=== PATIENT | female | born 1955 | race Caucasian/White ===

== ENCOUNTER 2017-06-19 02:06 | Observation (INO) | payer OTHER ==
[~2017-06-19] VITALS: Ht 170.2 cm; Wt 86.0 kg
[2017-06-19] VITALS (16 sets, daily range): BP systolic 147–210; BP diastolic 69–97; PULSE 53–67; RESP 18–20; TEMP 96.7–97.4; O2SAT 96–100
[~2017-06-19 02:06] MED LIST: AMLO10TA2 PO; ASPI325T PO; ATOR40TA16 PO; CARV12.52 PO; DICY10CA12 PO; GLIP-158 PO; HYDR10TA23 PO; LOSA100T PO; METF1000 PO; NITR1SUB3 SL; PRIL20CA9 PO; TEGR200T PO; ZANT150T2 PO
[2017-06-19] MEDS ORDERED: ASPIRIN 81 MG CHEW TAB PO ONE (02:15)
[2017-06-19] MEDS ORDERED: SODIUM CHLORIDE 0.9% FLUSH 10 ML FLUSH IVF PRN (02:15)
[2017-06-19] MEDS ORDERED: SODIUM CHLOR 0.9% 1000 ML INJ 1,000 ML IV SCH (02:15)
--- NOTE | 2017-06-19 02:15 | PD ---
HPI Chief Complaint: chest pain Time Seen by Provider: 02:15 Travel History International Travel<30 days: No Contact w/Intl Traveler<30days: No Traveled to known affect area: No History of Present Illness HPI 61 year-old female with history of CAD previous cardiac catheterization and CABG 2010 presents with retrosternal chest pain radiating into her jaw typical of her angina onset just prior to arrival to the emergency department. No nausea no vomiting no sweats and no shortness of breath at this time but has been having intermittent shortness of breath reportedly. Patient does not take any aspirin or nitroglycerin prior to arrival to the emergency department. Pain is rated as 3/10 in intensity; initially it was a 9/10. Patient is unable to identify exacerbating or alleviating factors. Patient had left-sided upper back pain resolved spontaneously. Patient reports recent surgery to the right lower extremity without or lower extremity pain or swelling. Patient recently started on Plavix therapy. PFSH Past Medical History Narrative Medical CAD CABG hypertension dyslipidemia CVA seizure disorder diabetes PVD thyroid dysfunction left carotid endarterectomy; family history CAD father age 50; no tobacco use; nursing notes reviewed Arthritis: No Asthma: No Autoimmune Disease: No Anxiety: Yes Depression: Yes Heart Rhythm Problems: Yes Cancer: No Cardiac Catheterization: Yes Cardiovascular Problems: Yes High Cholesterol: Yes Chemotherapy: No Chest Pain: Yes Congestive Heart Failure: No COPD: No Cerebrovascular Accident: Yes (2007) Coronary Artery Disease: Yes (LT ENDARTERECTOMY) Diabetes: Yes Diminished Hearing: No Endocrine: Yes Gastrointestinal Disorders: Yes GERD: No Genitourinary: No Headaches: Yes Hepatitis: No Hiatal Hernia: No Hypertension: Yes Immune Disorder: No Implanted Vascular Access Dvce: Yes (stent) Kidney Stones: No Musculoskeletal: Yes Neurologic: Yes Psychiatric: Yes (PANIC ATTACK) Reproductive: No Respiratory: No Immunizations Current: Yes Migraines: No Myocardial Infarction: Yes (X 1) Pneumonia: Yes ( A CHILD) Radiation Therapy: No Renal Failure: No Seizures: Yes Sickle Cell Disease: No Sleep Apnea: No Thyroid Disease: Yes (HX GOITER) Ulcer: Yes PNEUMOCCOCAL Vaccine (Year): 2009 Menopausal: Yes : 0 Para: 0 Past Surgical History Abdominal Surgery: No AICD: No Appendectomy: No Arteriovenous Shunt: No Body Medical Devices: a stent left carotid Cardiac Surgery: Yes (CABG, Left carotarectomy) Cholecystectomy: No Coronary Artery Bypass Graft: Yes (07/29 quad bypass) Ear Surgery: No Endocrine Surgery: No Eye Surgery: No Genitourinary Surgery: No Gynecologic Surgery: No Insulin Pump: No Joint Replacement: No Neurologic Surgery: Yes (BACK SURGERY 1990 DISC) Oral Surgery: Yes (TOOTH EXTRACTION) Pacemaker: No Thoracic Surgery: No Tonsillectomy: Yes ( CHILD) Other Surgery: Yes (TRIGGER FINGER, CARPEL TUNNEL, LEFT CAROTID ARTERY STENT) Social History Alcohol Use: No Tobacco Use: No Substance Use: No (marijuana) Allergies-Medications (Allergen,Severity, Reaction): Coded Allergies: escitalopram (Unverified Allergy, Severe, Rash, 06/19/17) iodine (Unverified Allergy, Severe, SEIZURES, 06/19/17) levofloxacin (Unverified Allergy, Severe, HIVES, 06/19/17) phenobarbital (Unverified Allergy, Severe, HIVES, 06/19/17) phenytoin (Unverified Allergy, Severe, HIVES, 06/19/17) potassium iodide (Unverified Allergy, Severe, SEIZURES, 06/19/17) povidone-iodine (Unverified Allergy, Severe, SEIZURES, 06/19/17) sodium iodide (Unverified Allergy, Severe, SEIZURES, 06/19/17) sodium iodide (Unverified Allergy, Severe, SEIZURES, 06/19/17) acetaminophen (Unverified Allergy, Intermediate, Cramping, 06/19/17) hydrocodone (Unverified Allergy, Intermediate, Cramping, 06/19/17) venlafaxine (Unverified Allergy, Mild, RASH, 06/19/17) Reported Meds & Prescriptions Reported Meds & Active Scripts Active Zantac (Ranitidine HCl) 150 Mg Tab 150 Mg PO BID Reported Plavix (Clopidogrel Bisulfate) 75 Mg Tab 75 Mg PO DAILY Hydralazine (Hydralazine HCl) 100 Mg Tab 100 Mg PO Q6HR Take with meals Omeprazole 20 Mg Tab 20 Mg PO DAILY Nitroglycerin SL (Nitroglycerin) 0.4 Mg Subl 0.4 Mg SL DIRECTED PRN ONE TABLET UNDER THE TONGUE NEEDED FOR CHEST PAIN, MAY REPEAT EVERY FIVE MINUTES FOR A TOTAL OF 3 DOSES OR CALL 911 IF NO RELIEF Metformin (Metformin HCl) 1,000 Mg Tab 1,000 Mg PO BIDPC With meals Losartan (Losartan Potassium) 100 Mg Tab 100 Mg PO DAILY Dicyclomine (Dicyclomine HCl) 10 Mg Cap 10 Mg PO QID Carvedilol 12.5 Mg Tab 12.5 Mg PO BID Tegretol (Carbamazepine) 200 Mg Tab 200 Mg PO DAILY@1600 Tegretol (Carbamazepine) 200 Mg Tab 400 Mg PO DAILY@0600 Atorvastatin (Atorvastatin Calcium) 40 Mg Tab 40 Mg PO HS Aspirin 325 Mg Tab 325 Mg PO DAILY Glipizide XL (Glipizide) 2.5 Mg Taryn 2.5 Mg PO DAILY Take with breakfast or first main meal of the day Amlodipine (Amlodipine Besylate) 10 Mg Tab 10 Mg PO DAILY Review of Systems Except as stated in HPI: all other systems reviewed are Neg General / Constitutional: No: Fever, Chills HENT: No: Congestion Cardiovascular: Positive: Chest Pain or Discomfort, Dyspnea on exertion ( intermittently), No: Claudication Respiratory: Positive: Other (No PND), No: Shortness of Breath, Orthopnea Gastrointestinal: Positive: Nausea Genitourinary: No: Dysuria Neurologic: No: Weakness, Dizziness, Syncope Psychiatric: No: Anxiety Endocrine: No: Heat Intolerance Hematologic/Lymphatic: No: Easy Bruising Physical Exam Narrative GENERAL: Well-developed well-nourished female in no acute distress no respiratory distress SKIN: Warm and dry. HEAD: Normocephalic. EYES: No scleral icterus. No injection or drainage. NECK: Supple, trachea midline. No JVD or lymphadenopathy. CARDIOVASCULAR: Regular rate and rhythm without murmurs, gallops, or rubs. RESPIRATORY: Breath sounds equal bilaterally. No accessory muscle use. GASTROINTESTINAL: Abdomen soft, non-tender, nondistended. MUSCULOSKELETAL: No cyanosis, or edema. Radial dorsalis pedis pulses 2+ to palpation BACK: Nontender without obvious deformity. No CVA tenderness. Data Data Last Documented VS Vital Signs Date Time Temp Pulse Resp B/P (MAP) Pulse Ox O2 Delivery O2 Flow Rate FiO2 06/19/17 04:02 53 20 171/77 (108) 100 06/19/17 03:32 2.00 06/19/17 02:28 97.2 06/19/17 02:27 Nasal Cannula Orders Orders Electrocardiogram (06/19/17 02:09) Basic Metabolic Panel (Bmp) (06/19/17 02:09) Ckmb (Isoenzyme) Profile (06/19/17 02:09) Complete Blood Count With Diff (06/19/17 02:09) Magnesium (Mg) (06/19/17 02:09) Prothrombin Time / Inr (Pt) (06/19/17 02:09) Act Partial Throm Time (Ptt) (06/19/17 02:09) Troponin I (06/19/17 02:09) Chest, Single Ap (06/19/17 02:09) Ecg Monitoring (06/19/17 02:09) Bilateral Bp Monitoring (06/19/17 02:09) Iv Access Insert/Monitor (06/19/17 02:09) Oximetry (06/19/17 02:09) Oxygen Administration (06/19/17 02:09) Aspirin Chew (Aspirin Chew) (06/19/17 02:15) Sodium Chloride 0.9% Flush (Ns Flush) (06/19/17 02:15) Nitroglycerin Sl (Nitrostat Sl) (06/19/17 02:15) Sodium Chlor 0.9% 1000 Ml Inj (Ns 1000 M (06/19/17 02:15) Nitroglycerin 2% Oint (Nitroglycerin 2% (06/19/17 03:15) D-Dimer (06/19/17 03:11) Labs Laboratory Tests Test 06/19/17 02:20 White Blood Count 7.2 TH/MM3 Red Blood Count 3.53 MIL/MM3 Hemoglobin 8.8 GM/DL Hematocrit 27.2 % Mean Corpuscular Volume 77.1 FL Mean Corpuscular Hemoglobin 25.0 PG Mean Corpuscular Hemoglobin Concent 32.5 % Red Cell Distribution Width 14.7 % Platelet Count 417 TH/MM3 Mean Platelet Volume 8.0 FL Neutrophils (%) (Auto) 60.0 % Lymphocytes (%) (Auto) 27.1 % Monocytes (%) (Auto) 8.9 % Eosinophils (%) (Auto) 2.7 % Basophils (%) (Auto) 1.3 % Neutrophils # (Auto) 4.4 TH/MM3 Lymphocytes # (Auto) 1.9 TH/MM3 Monocytes # (Auto) 0.6 TH/MM3 Eosinophils # (Auto) 0.2 TH/MM3 Basophils # (Auto) 0.1 TH/MM3 CBC Comment DIFF FINAL Differential Comment Prothrombin Time 10.7 SEC Prothromb Time International Ratio 1.0 RATIO Activated Partial Thromboplast Time 25.4 SEC D-Dimer Quantitative (PE/DVT) 0.45 MG/L FEU Blood Urea Nitrogen 19 MG/DL Creatinine 0.74 MG/DL Random Glucose 142 MG/DL Calcium Level 8.4 MG/DL Magnesium Level 1.7 MG/DL Sodium Level 135 MEQ/L Potassium Level 4.1 MEQ/L Chloride Level 100 MEQ/L Carbon Dioxide Level 24.4 MEQ/L Anion Gap 11 MEQ/L Estimat Glomerular Filtration Rate 80 ML/MIN Total Creatine Kinase 71 U/L Troponin I LESS THAN 0.02 NG/ML MDM Medical Decision Making Medical Screen Exam Complete: Yes Emergency Medical Condition: Yes Medical Record Reviewed: Yes Interpretation(s) EKG normal sinus rhythm with first-degree AV block rate [address] elevation patient does have ST segment flattening and mild depression anterolaterally V1 through V6 cxr no vascular congestion or lobar infiltrate Troponin I less than 0.02 not elevated; CK: 71, not elevated coags: wnl; d-dimer: 0.45, not elevated Last Impressions Chest X-Ray 06/19/17 0209 Signed Impressions: Service Date/Time: Monday, June 19, 2017 02:52 - CONCLUSION: Scattered streaky bilateral parenchymal opacities. Altaf Hawley MD Differential Diagnosis Chest pain, ACS, myocardial infarction, PE, aortic dissection Narrative Course Patient placed on cardiac sonographer EKG performed which shows sinus rhythm first degree AV block and mild ST segment flattening/depression anterolaterally [address] elevation IV access obtained specimens collected and sent resulting patient administered aspirin therapy and sublingual nitroglycerin Chest pain free after SL NTG x 1; blood pressure remains elevated Nitropaste applied to chest wall 3:19 AM patient @ 4:05 AM CP 0/10; BP: 166/60 Physician Communication Physician Communication discussed with patient's burial needs salesperson Dr Lynch-- DIRECTOR OF CORPORATE STRATEGY; call placed to [facility] service for [facility] DIRECTOR OF CORPORATE STRATEGY Diagnosis Primary Impression: Chest pain Additional Impressions: Anemia Qualified Codes: D64.9 - Anemia, unspecified Hypertension Qualified Codes: I10 - Essential (primary) hypertension Admitting Information Admitting Physician Requests: Observation Siri Lema MD Jun 19, 2017 02:15
[2017-06-19] MEDS: NITROGLYCERIN 0.4 MG SL 25 TABS/BTL SL SCH ×3 (02:18→02:25)
[2017-06-19 02:43] LABS: CHLORIDE 100 MEQ/L (98-107); SODIUM (NA) 135 MEQ/L (136-145)
[2017-06-19 02:45] LABS: CALCIUM 8.4 MG/DL (8.5-10.1)
[2017-06-19 02:46] LABS: BICARBONATE 24.4 MEQ/L (21.0-32.0); BLOOD UREA NITROGEN 19 MG/DL (7-18); GLUCOSE,RANDOM 142 MG/DL (74-106); MAGNESIUM 1.7 MG/DL (1.5-2.5)
[2017-06-19 02:48] LABS: AUTOMATED NEUTROPHIL # 4.4 TH/MM3 (1.8-7.7); BASOPHIL # 0.1 TH/MM3 (0-0.2); BASOPHIL % 1.3 % (0.0-2.0); EOSINOPHIL # 0.2 TH/MM3 (0-0.4); EOSINOPHIL % 2.7 % (0.0-4.0); HEMATOCRIT 27.2 % (35.0-46.0); HEMOGLOBIN 8.8 GM/DL (11.6-15.3); LYMPH % 27.1 % (9.0-44.0); LYMPHOCYTE # 1.9 TH/MM3 (1.0-4.8); MEAN CELL VOLUME 77.1 FL (80.0-100.0); MEAN CORPUSCULAR HGB CONC 32.5 % (32.0-36.0); MONO % 8.9 % (0.0-8.0); MONOCYTE # 0.6 TH/MM3 (0-0.9); PLATELET COUNT 417 TH/MM3 (150-450); PROTHROMBIN TIME - PATIENT 10.7 SEC (9.8-11.6); RED BLOOD COUNT 3.53 MIL/MM3 (4.00-5.30); RED CELL DISTRIBUTION WIDTH 14.7 % (11.6-17.2); WHITE BLOOD COUNT 7.2 TH/MM3 (4.0-11.0)
[2017-06-19 02:49] LABS: CREATININE 0.74 MG/DL (0.50-1.00); GLOMERULAR FILTRATION RATE 80 ML/MIN (>89)
[2017-06-19 02:54] LABS: TROPONIN I LESS THAN 0.02 NG/ML (0.02-0.05)
[2017-06-19] MEDS ORDERED: OMEP20TA PO (02:56)
[2017-06-19] MEDS ORDERED: DICY10 PO (02:56)
[2017-06-19] MEDS ORDERED: PLAV75TA29 PO (02:56)
[2017-06-19] MEDS ORDERED: HYDR-3801 PO (02:56)
[2017-06-19] MEDS ORDERED: NITROGLYCERIN 2% OINT 1 GM PACKET TOPICAL ONE (03:15)
--- NOTE | 2017-06-19 03:25 | RADRPT ---
EXAM DATE/TIME: 06/19/2017 02:52 [place] COMPARISON: CHEST SINGLE AP, November 13, 2015, 14:46. MYOCARDIAL PERF PHARM SPECT, GATED W/EF, December 28, 2014, 14:18 . INDICATIONS : Shortness of breath. MEDICAL HISTORY : Myocardial infarction. Hypertension. Coronary artery disease. Gastric ulcers. SURGICAL HISTORY : CABG. ENCOUNTER: Initial ACUITY: 1 day PAIN SCORE: 0/10 LOCATION: Bilateral chest FINDINGS: Minimal streaky parenchymal opacity present in the lungs bilaterally. No consolidative airspace disea se or effusion. Cardiomediastinal contour is satisfactory. CONCLUSION: Scattered streaky bilateral parenchymal opacities. Altaf Hawley MD on June 19, 2017 at 3:22 Board Certified Radiologist. This report was verified electronically.
[2017-06-19] MEDS ORDERED: NITROGLYCERIN 0.4 MG SL 25 TABS/BTL SL PRN (05:00)
[2017-06-19] MEDS ORDERED: SODIUM CHLORIDE 0.9% FLUSH 10 ML FLUSH IV FLUSH PRN ×2 (05:00)
[2017-06-19] MEDS ORDERED: PILL SPLITTER OTHER PRN (05:30)
[2017-06-19] MEDS ORDERED: hydrALAZINE HCL 100 MG TAB PO SCH (06:00)
[2017-06-19] MEDS ORDERED: carBAMazepine 200 MG TAB PO SCH (06:00)
[2017-06-19] MEDS: NITROGLYCERIN 2% OINT 1 GM PACKET TOP SCH ×2 (06:00→11:19)
[2017-06-19 06:06] LABS: TROPONIN I LESS THAN 0.02 NG/ML (0.02-0.05)
[2017-06-19] MEDS: hydrALAZINE HCL 50 MG TAB PO SCH ×2 (06:32→11:19)
[2017-06-19] MEDS: glipiZIDE 5 MG TAB PO SCH ×2 (07:46→14:58)
[2017-06-19] MEDS: DICYCLOMINE HCL 10 MG CAP PO SCH ×2 (08:32→11:19)
[2017-06-19] MEDS: CARVEDILOL 12.5 MG TAB PO SCH ×3 (08:33→15:00)
[2017-06-19] MEDS ORDERED: PANTOPRAZOLE SOD 20 MG DELAYED RELEASE TAB PO SCH (09:00)
[2017-06-19] MEDS ORDERED: LOSARTAN 50 MG TAB PO SCH (09:00)
[2017-06-19] MEDS ORDERED: SODIUM CHLORIDE 0.9% FLUSH 10 ML FLUSH IV FLUSH SCH ×2 (09:00)
[2017-06-19] MEDS ORDERED: CLOPIDOGREL 75 MG TAB PO SCH (09:00)
[2017-06-19] MEDS ORDERED: ASPIRIN 325 MG TAB PO SCH ×2 (09:00)
[2017-06-19] MEDS ORDERED: DEXTROSE 50% IN WATER 50 ML VIAL(D50) IV PUSH PRN (09:15)
[2017-06-19] MEDS ORDERED: GLUCAGON 1 MG/ML VIAL OTHER PRN (09:15)
[2017-06-19 09:16] LABS: TROPONIN I LESS THAN 0.02 NG/ML (0.02-0.05)
--- NOTE | 2017-06-19 09:28 | HHI.HP ---
[facility] Roseanna Perez MD Admission Diagnosis chest pain Diagnoses: (1) Chest pain Diagnosis: Principal Chief Complaint: Chest pain Travel History International Travel<30 Days: No Contact w/Intl Traveler <30 Da: No Traveled to Known Affected Are: No History of Present Illness Mrs. Molina is a 61-year-old female patient with a known medical history of CAD with previous CABG in 2010, hypercholesteremia and hypertension who presented to the ED with complaints of chest pain. Patient states that she has had intermittent chest pain for the past few months when this morning she awoke out of sleep around 0215 with complaints of midsternal chest pain, which radiated to the jaw and neck, lasted about 15 minutes with associated diaphoresis, shortness of breath an gas. States that the pain finally subsided around 20 minutes later after receiving Nitroglycerin in the ED. Does state that activity worsens the pain. Denies any associated nausea and vomiting. Denies any recent fever, chills, cough, abdominal pain, nausea, vomiting, diarrhea or dysuria. Patient does state she underwent unspecified bilateral lower extremity surgery by Dr. Valencia, with the right being on 05/12/17 and the left 05/23/17. Last saw Dr. Valencia yesterday who reportedly states patient is recovering well and improvement seen. Concrete Bucket Unloader is Dr. Lynch. Review of Systems Constitutional: DENIES: Fever, Chills Eyes: DENIES: Blurred vision Respiratory: COMPLAINS OF: Cough, Shortness of breath Cardiovascular: DENIES: Chest pain, Palpitations Gastrointestinal: DENIES: Abdominal pain, Constipation, Diarrhea, Nausea, Vomiting Psychiatric: COMPLAINS OF: Anxiety Except as stated in HPI: all other systems reviewed are Neg Past Family Social History Past Medical History CAD with history of CABG in 2010 Hypertension Hyperlipidemia History of CVA Seizure history Diabetes PVD Hypothyroidism Left carotid endarterectomy Depression History of tobacco use. Past Surgical History CABG 2010 Left cardiectomy Back surgery 1989 Tooth extraction Carpal tunnel Reported Medications Active Zantac (Ranitidine HCl) 150 Mg Tab 150 Mg PO BID Reported Plavix (Clopidogrel Bisulfate) 75 Mg Tab 75 Mg PO DAILY Hydralazine (Hydralazine HCl) 100 Mg Tab 100 Mg PO Q6HR Take with meals Omeprazole 20 Mg Tab 20 Mg PO DAILY Nitroglycerin SL (Nitroglycerin) 0.4 Mg Subl 0.4 Mg SL DIRECTED PRN ONE TABLET UNDER THE TONGUE NEEDED FOR CHEST PAIN, MAY REPEAT EVERY FIVE MINUTES FOR A TOTAL OF 3 DOSES OR CALL 911 IF NO RELIEF Metformin (Metformin HCl) 1,000 Mg Tab 1,000 Mg PO BIDPC With meals Losartan (Losartan Potassium) 100 Mg Tab 100 Mg PO DAILY Dicyclomine (Dicyclomine HCl) 10 Mg Cap 10 Mg PO QID Carvedilol 12.5 Mg Tab 12.5 Mg PO BID Tegretol (Carbamazepine) 200 Mg Tab 200 Mg PO DAILY@1600 Tegretol (Carbamazepine) 200 Mg Tab 400 Mg PO DAILY@0600 Atorvastatin (Atorvastatin Calcium) 40 Mg Tab 40 Mg PO HS Aspirin 325 Mg Tab 325 Mg PO DAILY Glipizide XL (Glipizide) 2.5 Mg Taryn 2.5 Mg PO DAILY Take with breakfast or first main meal of the day Amlodipine (Amlodipine Besylate) 10 Mg Tab 10 Mg PO DAILY Allergies: Coded Allergies: escitalopram (Unverified Allergy, Severe, Rash, 06/19/17) iodine (Unverified Allergy, Severe, SEIZURES, 06/19/17) levofloxacin (Unverified Allergy, Severe, HIVES, 06/19/17) phenobarbital (Unverified Allergy, Severe, HIVES, 06/19/17) phenytoin (Unverified Allergy, Severe, HIVES, 06/19/17) potassium iodide (Unverified Allergy, Severe, SEIZURES, 06/19/17) povidone-iodine (Unverified Allergy, Severe, SEIZURES, 06/19/17) sodium iodide (Unverified Allergy, Severe, SEIZURES, 06/19/17) sodium iodide (Unverified Allergy, Severe, SEIZURES, 06/19/17) acetaminophen (Unverified Allergy, Intermediate, Cramping, 06/19/17) hydrocodone (Unverified Allergy, Intermediate, Cramping, 06/19/17) venlafaxine (Unverified Allergy, Mild, RASH, 06/19/17) Active Ordered Medications Current Medications Medications (Trade) Dose Ordered Sig/Thierry Route Start Time Stop Time Status Last Admin (NS Flush) 2 ml UNSCH PRN IV FLUSH 06/19/17 05:00 (NS Flush) 2 ml BID IV FLUSH 06/19/17 09:00 (Nitroglycerin 2% Oint) 1 inch Q6HR TOP 06/19/17 06:00 06/19/17 11:19 (Norvasc) 10 mg DAILY PO 06/19/17 09:00 06/19/17 08:32 (Aspirin) 325 mg DAILY PO 06/19/17 09:00 (Lipitor) 40 mg HS PO 06/19/17 21:00 (TEGretol) 400 mg DAILY@0600 PO 06/19/17 06:00 06/19/17 06:31 (Coreg) 12.5 mg BID PO 06/19/17 09:00 (Plavix) 75 mg DAILY PO 06/19/17 09:00 06/19/17 08:32 (Bentyl) 10 mg QID PO 06/19/17 09:00 06/19/17 11:19 (Cozaar) 100 mg DAILY PO 06/19/17 09:00 06/19/17 08:32 (Nitrostat Sl) 0.4 mg Q4HR PRN SL 06/19/17 05:00 (Glucotrol) 1.25 mg BIDAC PO 06/19/17 07:00 06/19/17 07:46 (Protonix) 20 mg DAILY PO 06/19/17 09:00 06/19/17 08:32 (Pill Splitter) 1 ea UNSCH PRN OTHER 06/19/17 05:30 (Apresoline) 100 mg Q6HR PO 06/19/17 06:00 06/19/17 11:19 (D50w (Vial) Inj) 50 ml UNSCH PRN IV PUSH 06/19/17 09:15 (Glucagon Inj) 1 mg UNSCH PRN OTHER 06/19/17 09:15 (NovoLOG SUPPLEMENTAL SCALE) 1 ACHS SLIDING SCALE SQ 06/19/17 12:00 Family History Paternal medical history significant for cardiovascular disease. Maternal medical history significant for throat, lung and brain cancer. Social History Denies any current tobacco use, states she quit in 1988. Denies any alcohol use. Denies any illicit drug use. Physical Exam Vital Signs Vital Signs Date Time Temp Pulse Resp B/P (MAP) Pulse Ox O2 Delivery O2 Flow Rate FiO2 06/19/17 07:50 96.9 67 20 181/72 (108) 100 06/19/17 07:15 63 20 190/88 (122) 97 Nasal Cannula 2.00 06/19/17 06:43 100 Nasal Cannula 2.00 06/19/17 06:00 58 20 178/95 (122) 98 Nasal Cannula 2.00 06/19/17 05:00 61 20 189/95 (126) 98 Nasal Cannula 2.00 06/19/17 04:02 53 20 171/77 (108) 100 06/19/17 03:32 53 20 176/79 (111) 100 2.00 06/19/17 03:26 56 20 100 2.00 06/19/17 03:02 56 20 175/74 (107) 100 2.00 06/19/17 02:32 58 20 186/75 (112) 99 2.00 175/69 (104) 06/19/17 02:28 97.2 64 20 210/97 (134) 96 06/19/17 02:27 97.4 59 20 175/69 (104) 99 Nasal Cannula 2.00 06/19/17 02:27 99 Nasal Cannula 2.00 06/19/17 02:24 61 18 147/70 (95) 99 Nasal Cannula 2.00 06/19/17 02:23 18 06/19/17 02:19 62 18 189/97 (127) 100 Nasal Cannula 2.00 Physical Exam GENERAL: This is a well-nourished, well-developed female patient, sitting up in bed in no apparent distress. SKIN: No rashes, ecchymoses or lesions. Warm and dry. HEAD: Atraumatic. Normocephalic. Pupils equal round and reactive. Extraocular motions intact. No scleral icterus. No injection or drainage. Nose without bleeding. Throat without erythema, tonsillar hypertrophy or exudate. Airway patent. NECK: Trachea midline. No JVD. Supple. CARDIOVASCULAR: Regular rate and rhythm. 2/6 systolic murmur. No gallops, or rubs. Right carotid bruit noted. RESPIRATORY: Clear to auscultation. Breath sounds equal bilaterally. No wheezes , rales, or rhonchi. GASTROINTESTINAL: Abdomen soft, non-tender, nondistended. No guarding. MUSCULOSKELETAL: Extremities without clubbing, cyanosis, or edema. No joint tenderness, effusion, or edema noted. NEUROLOGICAL: Awake and alert. Cranial nerves II through XII intact. Motor and sensory grossly within normal limits. Five out of 5 muscle strength in all muscle groups. Normal speech. Laboratory Laboratory Tests Test 06/19/17 02:20 06/19/17 05:20 06/19/17 08:15 White Blood Count 7.2 Red Blood Count 3.53 Hemoglobin 8.8 Hematocrit 27.2 Mean Corpuscular Volume 77.1 Mean Corpuscular Hemoglobin 25.0 Mean Corpuscular Hemoglobin Concent 32.5 Red Cell Distribution Width 14.7 Platelet Count 417 Mean Platelet Volume 8.0 Neutrophils (%) (Auto) 60.0 Lymphocytes (%) (Auto) 27.1 Monocytes (%) (Auto) 8.9 Eosinophils (%) (Auto) 2.7 Basophils (%) (Auto) 1.3 Neutrophils # (Auto) 4.4 Lymphocytes # (Auto) 1.9 Monocytes # (Auto) 0.6 Eosinophils # (Auto) 0.2 Basophils # (Auto) 0.1 CBC Comment DIFF FINAL Differential Comment Prothrombin Time 10.7 Prothromb Time International Ratio 1.0 Activated Partial Thromboplast Time 25.4 D-Dimer Quantitative (PE/DVT) 0.45 Blood Urea Nitrogen 19 Creatinine 0.74 Random Glucose 142 Calcium Level 8.4 Magnesium Level 1.7 Sodium Level 135 Potassium Level 4.1 Chloride Level 100 Carbon Dioxide Level 24.4 Anion Gap 11 Estimat Glomerular Filtration Rate 80 Total Creatine Kinase 71 63 Troponin I LESS THAN 0.02 LESS THAN 0.02 Result Diagram: 06/19/1721906/19/17219 Imaging Last Impressions Chest X-Ray 06/19/17208 Signed Impressions: Service Date/Time: Monday, June 19, 2017 02:52 - CONCLUSION: Scattered streaky bilateral parenchymal opacities. MD Gaurav De Leóni VTE Risk Assessment Capgranti VTE Risk Assessment: Mod/High Risk (score >= 2) Caprini Risk Assessment Model Point Value = 1 Point Value = 2 Point Value = 3 Point Value = 5 Age 41-60 Minor surgery BMI > 25 kg/m2 Swollen legs Varicose veins or History of unexplained or recurrent spontaneous Oral contraceptives or hormone replacement Sepsis (< 1 month) Serious lung disease, including pneumonia (< 1 month) Abnormal pulmonary function Acute myocardial infarction Congestive heart failure (< 1 month) History of inflammatory bowel disease Medical patient at bed rest Age 61-74 Arthroscopic surgery Major open surgery (> 45 min) Laparoscopic surgery (> 45 min) Malignancy Confined to bed (> 72 hours) Immobilizing plaster cast Central venous access Age >= 75 History of VTE Family history of VTE Factor V Leiden Prothrombin [id number] Lupus anticoagulant Anticardiolipin antibodies Elevated serum homocysteine Heparin-induced thrombocytopenia Other congenital or acquired thrombophilia Stroke (< 1 month) Elective arthroplasty Hip, pelvis, or leg fracture Acute spinal cord injury (< 1 month) Prophylaxis Regimen Total Risk Factor Score Risk Level Prophylaxis Regimen 0-1 Low Early ambulation 2 Moderate Order ONE of the following: *Sequential Compression Device (SCD) *Heparin 5000 units SQ BID 3-4 Higher Order ONE of the following medications: *Heparin 5000 units SQ TID *Enoxaparin/Lovenox 40 mg SQ daily (WT < 150 kg, CrCl > 30 mL/min) *Enoxaparin/Lovenox 30 mg SQ daily (WT < 150 kg, CrCl > 10-29 mL/min) *Enoxaparin/Lovenox 30 mg SQ BID (WT < 150 kg, CrCl > 30 mL/min) AND/OR *Sequential Compression Device (SCD) 5 or more Highest Order ONE of the following medications: *Heparin 5000 units SQ TID (Preferred with Epidurals) *Enoxaparin/Lovenox 40 mg SQ daily (WT < 150 kg, CrCl > 30 mL/min) *Enoxaparin/Lovenox 30 mg SQ daily (WT < 150 kg, CrCl > 10-29 mL/min) *Enoxaparin/Lovenox 30 mg SQ BID (WT < 150 kg, CrCl > 30 mL/min) AND *Sequential Compression Device (SCD) Assessment and Plan Assessment and Plan Mrs. Molina is a 61-year-old female patient with a known medical history of CAD with previous CABG in 2010, hypercholesteremia and hypertension who presented to the ED with complaints of chest pain. Patient states that she has had intermittent chest pain for the past few months when this morning she awoke out of sleep around 0215 with complaints of midsternal chest pain, which radiated to the jaw and neck, lasted about 15 minutes with associated diaphoresis, shortness of breath an gas. Chest pain - Patient has been admitted to the chest pain center. Serial EKGs and serial troponins ordered for ruling out purposes. Spoke to Dr. Lynch, patient's quality assurance analyst, who agrees to nuclear stress test. Further treatment plan and work up will depend on nuclear imaging results. Continue to monitor. Supportive care. Control pain, Nitroglycerin available. - CXR reviewed showing scattered bilateral parenchymal opacities. Hypertension, chronic: Continue home Apresoline, amlodipine and losartan. Type 2 diabetes: Continue home Glipizide. ACCU checks ACHS, sliding scale insulin, cover as needed. Continue to monitor BS trends closely since NPO. CAD with stent placement and CABG history: Continue home Plavix. Continue aspirin and Coreg. GERD/GI prophylaxis: Protonix. Hyperlipidemia: Continue home Atorvastatin. Nuclear stress test results reviewed, showing stable large lateral wall infarct, global hypokinesis from 12/28/14. Negative for stress-induced ischemia. Patient has an appointment set with Dr. Lynch tomorrow and will bring in report. Patient will be discharged today. Pain is absent at this time. BP is elevated, Clonidine PRN prescription given to patient and administered before discharge. Patient understanding and agreeable to the plan. All questions answered to the best of my ability. Lydia Yeh Jun 19, 2017 09:28
[2017-06-19] MEDS: INSULIN ASPART SUPPLEMENTAL SCALE SQ SCH ×2 (11:22→15:06)
[2017-06-19] MEDS ORDERED: REGADENOSON INJ 0.4 MG/5 ML SYR IV ONE (12:38)
--- NOTE | 2017-06-19 15:18 | EKG ---
Date Performed: 06/19/2017 Time Performed: 08:14:37 PTAGE: 61 years EKG: Sinus rhythm WITH FIRST DEGREE AV BLOCK ST DEVIATION AND MODERATE T-WAVE ABNORMALITY ABNORMAL ECG PREVIOUS TRACING : 06/19/2017 05.22 Compared to prior tracing no significant change DOCTOR: Bonita Huddleston Interpretating Date/Time 06/19/2017 15:17:48
--- NOTE | 2017-06-19 15:26 | EKG ---
Date Performed: 06/19/2017 Time Performed: 05:22:07 PTAGE: 61 years EKG: SINUS BRADYCARDIA WITH FIRST DEGREE AV BLOCK NONSPECIFIC ST-T ABNORMALITY ABNORMAL ECG PREVIOUS TRACING : 06/19/2017 02.15 Compared to prior tracing no significant change DOCTOR: Bonita Huddleston Interpretating Date/Time 06/19/2017 15:24:59
--- NOTE | 2017-06-19 15:28 | EKG ---
Date Performed: 06/19/2017 Time Performed: 02:15:29 PTAGE: 61 years EKG: Sinus rhythm WITH FIRST DEGREE AV BLOCK ST DEVIATION AND MODERATE T-WAVE ABNORMALITY ABNORMAL ECG PREVIOUS TRACING : 11/13/2015 18.39 Compared to prior tracing no significant change DOCTOR: Bonita Huddleston Interpretating Date/Time 06/19/2017 15:26:59
--- NOTE | 2017-06-19 15:33 | RADRPT ---
EXAM DATE/TIME: 06/19/2017 11:44 [place] COMPARISON: MYOCARDIAL PERF PHARM SPECT, GATED W/EF, December 28, 2014, 14:18. INDICATIONS : Midsternal chest pain radiating to jaw with dyspnea and diaphoresis. Angina. Coronary artery disease. DOSE: 25.4 mCi Tc99m Myoview at stress. 8.6 mCi Tc99m Myoview at rest. 0.4 mg Lexiscan STRESS SYMPTOMS: Chest pressure, stomach pain, shortness of breath. EJECTION FRACTION: 48% MEDICAL HISTORY : Hypertension. SURGICAL HISTORY : Tonsillectomy. CABG Carotid endarterectomy. Coronary artery stent. ENCOUNTER: Initial ACUITY: 2 days PAIN SCALE: 6/10 LOCATION: Substernal chest TECHNIQUE: The patient underwent pharmacologic stress with infusion of prescribed dose. Continuous ECG tracing was monitored during stress. Gated SPECT imaging was performed after stress and conventional SPECT i maging was performed at rest. The examination was performed on a SPECT/CT scanner, both attenuation and non-corrected datasets were reviewed. FINDINGS: Moderate gut activity does obscure the inferior wall. There is enlarged fixed defect involving the lateral wall. The best perfused myocardium is the septu m. There is no redistribution suggest ischemia. However. The activity obscured the significant por tion of the inferior wall towards the base. The ejection fraction is 48% with moderate global hypokinesis worse in the base. CONCLUSION: Large lateral wall infarct. Global hypokinesis. Negative for stress-induced ischemia. Stable from 12/28/14. Correlation is suggested. RISK CATEGORY: Low (<1% Annual Mortality Rate) Edd Schuster MD FACR on June 19, 2017 at 15:27 Board Certified Radiologist. This report was verified electronically.
--- NOTE | 2017-06-19 15:57 | HHI.DCPOC ---
Discharge Care Plan Diagnosis: (1) Chest pain (2) Hypertension (3) Hyperlipidemia (4) Diabetes Your Health Problems Are: Chest Pain Goals to Promote Your Health * To prevent worsening of your condition and complications * To maintain your health at the optimal level Directions to Meet Your Goals Take your medications as prescribed Follow your dietary instruction Follow activity as directed Keep your appointments as scheduled Take your immunizations and boosters as scheduled If your symptoms worsen call your PCP, if no PCP go to Urgent Care Center or Emergency Room Smoking is Dangerous to Your Health. Avoid second hand smoke Call the 24-hour hour crisis hotline for domestic abuse at Lydia Yeh Jun 19, 2017 15:57
--- NOTE | 2017-06-19 15:57 | HHI.DCPOC ---
Discharge Care Plan Diagnosis: (1) Chest pain (2) Hypertension (3) Hyperlipidemia (4) Diabetes Your Health Problems Are: Chest Pain Goals to Promote Your Health * To prevent worsening of your condition and complications * To maintain your health at the optimal level Directions to Meet Your Goals Take your medications as prescribed Follow your dietary instruction Follow activity as directed Keep your appointments as scheduled Take your immunizations and boosters as scheduled If your symptoms worsen call your PCP, if no PCP go to Urgent Care Center or Emergency Room Smoking is Dangerous to Your Health. Avoid second hand smoke Call the 24-hour hour crisis hotline for domestic abuse at Lydia Yeh Jun 19, 2017 15:57
--- NOTE | 2017-06-19 15:57 | HHI.DCPOC ---
Discharge Care Plan Diagnosis: (1) Chest pain (2) Hypertension (3) Hyperlipidemia (4) Diabetes Your Health Problems Are: Chest Pain Goals to Promote Your Health * To prevent worsening of your condition and complications * To maintain your health at the optimal level Directions to Meet Your Goals Take your medications as prescribed Follow your dietary instruction Follow activity as directed Keep your appointments as scheduled Take your immunizations and boosters as scheduled If your symptoms worsen call your PCP, if no PCP go to Urgent Care Center or Emergency Room Smoking is Dangerous to Your Health. Avoid second hand smoke Call the 24-hour hour crisis hotline for domestic abuse at Lydia Yeh Jun 19, 2017 15:57
[2017-06-19] MEDS ORDERED: CLON0.1T PO (16:03)
[2017-06-19] MEDS ORDERED: cloNIDine HCL 0.1 MG TAB PO PRN (16:15)
[2017-06-19] MEDS ORDERED: ATORVASTATIN 40 MG TAB PO SCH (21:00)
--- NOTE | 2017-06-24 09:06 | TR ---
Date Performed: 06/19/2017 Time Performed: 12:13:40 DOCTOR: Vazquez Escalante DRUG LIST: ASA Nitro CLINICAL HISTORY: CHEST PAIN CHEST PAIN REASON FOR TEST: Chest pain REASON FOR ENDING: OBSERVATION: CONCLUSION: Lexiscan stress test was performed under standard four minute protocol. Radionuclid e was injected one minute prior to ending the test. No electrocardiographic abormalities were present to suggest ischemia. Nuclear imaging and interpretation are pending. COMMENTS:
== END 2017-06-19 16:45 | disposition home or self-care (01) ==
LOC: PHED 02:06 → PHEDA 05:00 → PH3A 06:58
PROVIDERS: ADMIT Family Medicine; ATTEND Family Medicine
DX: R07.9 Chest pain, unspecified (principal); I10 Essential (primary) hypertension; E11.9 Type 2 diabetes mellitus without complications; R06.02 Shortness of breath; E04.9 Nontoxic goiter, unspecified; R94.31 Abnormal electrocardiogram [ECG] [EKG]; G40.909 Epilepsy, unspecified, not intractable, without status epilepticus; I25.2 Old myocardial infarction; I73.9 Peripheral vascular disease, unspecified; E78.00 Pure hypercholesterolemia, unspecified; R51 Headache; M54.6 Pain in thoracic spine; Z95.1 Presence of aortocoronary bypass graft; Z82.49 Family history of ischemic heart disease and other diseases of the circulatory system; Z86.73 Personal history of transient ischemic attack (TIA), and cerebral infarction without residual deficits
CPT/HCPCS: 71010; 78452; 80048; 82550; 83735; 84484; 85025; 85379; 85610; 85730; 93005; 93017; 96360; 99285; A9502; G0378; J2785; J7030

== ENCOUNTER 2017-07-19 08:35 | Observation (INO) | payer OTHER ==
[2017-07-19] VITALS (9 sets, daily range): BP systolic 148–198; BP diastolic 60–81; PULSE 56–71; RESP 14–19; TEMP 96.6–98.8; O2SAT 70–100
[~2017-07-19 08:35] MED LIST changes: +ASPI-183 PO; -ASPI325T PO; +CLON0.1T PO; +HYDR-3801 PO; -HYDR10TA23 PO; +OMEP20TA93 PO; +PLAV75TA29 PO; -PRIL20CA9 PO
[2017-07-19] MEDS ORDERED: CYCL5TAB PO (08:51)
[2017-07-19] MEDS ORDERED: DICY10 PO (08:51)
[2017-07-19] MEDS ORDERED: CILO100T PO (08:51)
[2017-07-19] MEDS ORDERED: VITA1000 PO (08:51)
[2017-07-19] MEDS ORDERED: ONDANSETRON HCL 4 MG/2 ML VIAL IV PUSH ONE (09:00)
[2017-07-19] MEDS ORDERED: SODIUM CHLOR 0.9% 1000 ML INJ 1,000 ML IV ONE (09:00)
--- NOTE | 2017-07-19 09:03 | PD ---
HPI Chief Complaint: GI Complaint Time Seen by Provider: 08:50 Travel History International Travel<30 days: No Contact w/Intl Traveler<30days: No Traveled to known affect area: No History of Present Illness HPI 61yo F with PMH of CVA, CAD s/p CABG 2010, HLD, HTN presents to the ED with c/o nonbloody diarrhea today. Pt has been feeling generalized weakness for 1 month and sat on the toilet and had a syncopal episode. states she rolled her head back and passed out for a second. He said he was unsure if it was passing out or seizure. Denies any generalized clonic tonic movement and no post ictal state. Pt has history of seizure and is on tegretol. Denies any fall or head trauma. She woke up and still on toilet. Denies any chest pain, sob, abdominal pain, focal weakness or numbness. Pt had an episode of NBNB vomiting en route as per EVAC. Pt was admitted to chest pain center on 06/19/17 and had negative stress test and followed up with Dr. Hyman. [facility] Past Medical History Anemia: Yes Arthritis: No Asthma: No Autoimmune Disease: No Anxiety: Yes Depression: Yes Heart Rhythm Problems: Yes Cancer: No Cardiac Catheterization: Yes Cardiovascular Problems: Yes High Cholesterol: Yes Chemotherapy: No Chest Pain: Yes Congestive Heart Failure: No COPD: No Cerebrovascular Accident: Yes (2007) Coronary Artery Disease: Yes (LT ENDARTERECTOMY) Diabetes: Yes Patient Takes Glucophage: Yes Diminished Hearing: No Endocrine: Yes Gastrointestinal Disorders: Yes GERD: No Genitourinary: No Headaches: Yes Hepatitis: No Hiatal Hernia: No Heparin Induced Thrombocytopen: No Hypertension: Yes Immune Disorder: No Implanted Vascular Access Dvce: Yes (STENT) Kidney Stones: No Musculoskeletal: Yes Neurologic: Yes Psychiatric: Yes (PANIC ATTACK) Reproductive: No Respiratory: No Immunizations Current: Yes Migraines: No Myocardial Infarction: Yes (X 1) Pneumonia: Yes ( A CHILD) Radiation Therapy: No Renal Failure: No Seizures: Yes Sickle Cell Disease: No Sleep Apnea: No Thyroid Disease: Yes (HX GOITER) Ulcer: Yes PNEUMOCCOCAL Vaccine (Year): 2009 ?: Not Menopausal: Yes : 0 Para: 0 Past Surgical History Abdominal Surgery: No AICD: No Appendectomy: No Arteriovenous Shunt: No Body Medical Devices: a stent left carotid Cardiac Surgery: Yes Cholecystectomy: No Coronary Artery Bypass Graft: Yes (07/29 4 VESSELS) Ear Surgery: No Endocrine Surgery: No Eye Surgery: No Genitourinary Surgery: No Gynecologic Surgery: No Insulin Pump: No Joint Replacement: No Neurologic Surgery: Yes (BACK SURGERY 1989 DISC) Oral Surgery: Yes (TOOTH EXTRACTION) Pacemaker: No Thoracic Surgery: No Tonsillectomy: Yes Other Surgery: Yes (TRIGGER FINGER, CARPEL TUNNEL, LEFT CAROTID ARTERY STENT) Family History Family Myocardial Infarction: Yes Social History Alcohol Use: No Tobacco Use: No (QUIT 1988) Substance Use: No Allergies-Medications (Allergen,Severity, Reaction): Coded Allergies: escitalopram (Unverified Allergy, Severe, Rash, 07/19/17) iodine (Unverified Allergy, Severe, SEIZURES, 07/19/17) levofloxacin (Unverified Allergy, Severe, HIVES, 07/19/17) phenobarbital (Unverified Allergy, Severe, HIVES, 07/19/17) phenytoin (Unverified Allergy, Severe, HIVES, 07/19/17) potassium iodide (Unverified Allergy, Severe, SEIZURES, 07/19/17) povidone-iodine (Unverified Allergy, Severe, SEIZURES, 07/19/17) sodium iodide (Unverified Allergy, Severe, SEIZURES, 07/19/17) sodium iodide (Unverified Allergy, Severe, SEIZURES, 07/19/17) acetaminophen (Unverified Allergy, Intermediate, Cramping, 07/19/17) hydrocodone (Unverified Allergy, Intermediate, Cramping, 07/19/17) venlafaxine (Unverified Allergy, Mild, RASH, 07/19/17) Reported Meds & Prescriptions Reported Meds & Active Scripts Active Clonidine (Clonidine HCl) 0.1 Mg Tab 0.1 Mg PO BID PRN Zantac (Ranitidine HCl) 150 Mg Tab 150 Mg PO BID Reported Aspirin 81 Mg Chew 81 Mg CHEW DAILY Flexeril (Cyclobenzaprine HCl) 5 Mg Tab 5 Mg PO TID Cilostazol 100 Mg Tab 100 Mg PO BID Vitamin D-1000 (Cholecalciferol) 1,000 Unit Tab 5,000 Units PO DAILY Bentyl (Dicyclomine HCl) 10 Mg Cap 10 Mg PO TID PRN Hydralazine (Hydralazine HCl) 100 Mg Tab 25 Mg PO Q6HR Take with meals Omeprazole 20 Mg Tab 20 Mg PO DAILY Nitroglycerin SL (Nitroglycerin) 0.4 Mg Subl 0.4 Mg SL DIRECTED PRN ONE TABLET UNDER THE TONGUE NEEDED FOR CHEST PAIN, MAY REPEAT EVERY FIVE MINUTES FOR A TOTAL OF 3 DOSES OR CALL 911 IF NO RELIEF Metformin (Metformin HCl) 1,000 Mg Tab 1,000 Mg PO BIDPC With meals Losartan (Losartan Potassium) 100 Mg Tab 100 Mg PO DAILY Carvedilol 12.5 Mg Tab 12.5 Mg PO BID Tegretol (Carbamazepine) 200 Mg Tab 200 Mg PO TID Atorvastatin (Atorvastatin Calcium) 40 Mg Tab 40 Mg PO HS Glipizide XL (Glipizide) 2.5 Mg Taryn 2.5 Mg PO DAILY Take with breakfast or first main meal of the day Amlodipine (Amlodipine Besylate) 10 Mg Tab 10 Mg PO DAILY Review of Systems Except as stated in HPI: all other systems reviewed are Neg Physical Exam Narrative GENERAL: 61yo F in mild distress. SKIN: Focused skin assessment warm/dry. HEAD: Atraumatic. Normocephalic. EYES: Pupils equal and round. No scleral icterus. No injection or drainage. ENT: No nasal bleeding or discharge. Mucous membranes pink and moist. NECK: Trachea midline. No JVD. CARDIOVASCULAR: Regular rate and rhythm. No murmur appreciated. RESPIRATORY: No accessory muscle use. Clear to auscultation. Breath sounds equal bilaterally. GASTROINTESTINAL: Abdomen soft, non-tender, nondistended. No rebound tenderness or guarding. MUSCULOSKELETAL: No obvious deformities. No clubbing. No cyanosis. No edema. NEUROLOGICAL: Awake and alert. No obvious cranial nerve deficits. Motor grossly within normal limits. Normal speech. PSYCHIATRIC: Appropriate mood and affect; insight and judgment normal. Data Data Last Documented VS Vital Signs Date Time Temp Pulse Resp B/P (MAP) Pulse Ox O2 Delivery O2 Flow Rate FiO2 07/19/17 08:41 16 07/19/17 08:38 97.6 56 169/60 (96) 100 Orders Orders Complete Blood Count With Diff (07/19/17 09:00) Comprehensive Metabolic Panel (07/19/17 09:00) Magnesium (Mg) (07/19/17 09:00) Ondansetron Inj (Zofran Inj) (07/19/17 09:00) Sodium Chlor 0.9% 1000 Ml Inj (Ns 1000 M (07/19/17 09:00) Carbamazepine (Tegretol) (07/19/17 09:00) Electrocardiogram (07/19/17 ) Urinalysis - C+S If Indicated (07/19/17 11:08) Pantoprazole Inj (Protonix Inj) (07/19/17 11:45) Type And Screen (07/19/17 11:34) Red Blood Cells (Rbc) (07/19/17 11:34) Blood Product Administration (07/19/17 11:34) Sodium Chlor 0.9% 250 Ml Inj (Ns 250 Ml (07/19/17 11:45) Admit Order (Ed Use Only) (07/19/17 11:36) Labs Laboratory Tests Test 07/19/17 10:00 07/19/17 11:30 White Blood Count 6.3 TH/MM3 Red Blood Count 3.51 MIL/MM3 Hemoglobin 7.8 GM/DL Hematocrit 25.8 % Mean Corpuscular Volume 73.6 FL Mean Corpuscular Hemoglobin 22.2 PG Mean Corpuscular Hemoglobin Concent 30.1 % Red Cell Distribution Width 15.5 % Platelet Count 355 TH/MM3 Mean Platelet Volume 7.3 FL Neutrophils (%) (Auto) 80.2 % Lymphocytes (%) (Auto) 11.7 % Monocytes (%) (Auto) 5.4 % Eosinophils (%) (Auto) 2.1 % Basophils (%) (Auto) 0.6 % Neutrophils # (Auto) 5.2 TH/MM3 Lymphocytes # (Auto) 0.7 TH/MM3 Monocytes # (Auto) 0.3 TH/MM3 Eosinophils # (Auto) 0.1 TH/MM3 Basophils # (Auto) 0.0 TH/MM3 CBC Comment AUTO DIFF Differential Comment AUTO DIFF CONFIRMED Ovalocytes 2+ Keratocytes OCC Blood Urea Nitrogen 17 MG/DL Creatinine 0.71 MG/DL Random Glucose 113 MG/DL Total Protein 7.7 GM/DL Albumin 3.4 GM/DL Calcium Level 8.3 MG/DL Magnesium Level 1.8 MG/DL Alkaline Phosphatase 132 U/L Aspartate Amino Transf (AST/SGOT) 8 U/L Alanine Aminotransferase (ALT/SGPT) 18 U/L Total Bilirubin 0.3 MG/DL Sodium Level 135 MEQ/L Potassium Level 4.4 MEQ/L Chloride Level 103 MEQ/L Carbon Dioxide Level 24.6 MEQ/L Anion Gap 7 MEQ/L Estimat Glomerular Filtration Rate 84 ML/MIN Carbamazepine (Tegretol) Level 10.7 MCG/ML Urine Collection Type CLEAN CATCH Urine Color YELLOW Urine Turbidity CLEAR Urine pH 6.0 Urine Specific [place] 1.015 Urine Protein NEG mg/dL Urine Glucose (UA) NEG mg/dL Urine Ketones NEG mg/dL Urine Occult Blood NEG Urine Nitrite NEG Urine Bilirubin NEG Urine Leukocyte Esterase NEG Urine WBC 0-2 /hpf Urine Squamous Epithelial Cells 6-8 /hpf Urine Hyaline Casts 20-24 /lpf Microscopic Urinalysis Comment CULT NOT INDICATED Urine Collection Time 11:30 MDM Medical Decision Making Medical Screen Exam Complete: Yes Emergency Medical Condition: Yes Interpretation(s) EKG: Sinus bradycardia at 48bpm. 1st AV block. Mild ST depression. TWI III. Differential Diagnosis Vasovagal syncope vs. arrhythmia Narrative Course 61yo F here with c/o diarrhea and a syncopal episode on the toilet while having bowel movement today. Labs reviewed, no leukocytosis. H/H low at 7.8/25.8. This is slightly lower than her baseline. I check hemaprompt and it does have slight blue tone so positive. Pt given protonix. Since she has CAD, is symptomatic and states she feels generalized weakness and sob with walking, will transfuse 1 unit PRBC. BMP unremarkable. UA showed hyaline casts, pt is dehydrated. Pt reevaluated after zofran, NS IVF and feels a little better. No abdominal pain, chest pain or sob now. Carbamazepine level therapeutic. Discussed with Dr. Moore and accepted to her service. [facility] Point of Care Internal Pos. & Neg. Controls: Passed Fecal Specimen Occult Blood: Positive Diagnosis Primary Impression: Symptomatic anemia Additional Impression: Dehydration Admitting Information Admitting Physician Requests: Paz Chiu DO Jul 19, 2017 09:03
[2017-07-19 09:59] LABS: AUTOMATED NEUTROPHIL # 5.2 TH/MM3 (1.8-7.7); BASOPHIL % 0.6 % (0.0-2.0); EOSINOPHIL # 0.1 TH/MM3 (0-0.4); EOSINOPHIL % 2.1 % (0.0-4.0); HEMATOCRIT 25.8 % (35.0-46.0); LYMPH % 11.7 % (9.0-44.0); LYMPHOCYTE # 0.7 TH/MM3 (1.0-4.8); MEAN CELL VOLUME 73.6 FL (80.0-100.0); MEAN CORPUSCULAR HEMOGLOBIN 22.2 PG (27.0-34.0); MEAN CORPUSCULAR HGB CONC 30.1 % (32.0-36.0); MONO % 5.4 % (0.0-8.0); NEUT % 80.2 % (16.0-70.0); PLATELET COUNT 355 TH/MM3 (150-450); RED BLOOD COUNT 3.51 MIL/MM3 (4.00-5.30); RED CELL DISTRIBUTION WIDTH 15.5 % (11.6-17.2); WHITE BLOOD COUNT 6.3 TH/MM3 (4.0-11.0)
[2017-07-19 10:02] LABS: HEMO FLAGS AUTO DIFF
[2017-07-19 10:08] LABS: CHLORIDE 103 MEQ/L (98-107); POTASSIUM 4.4 MEQ/L (3.5-5.1); SODIUM (NA) 135 MEQ/L (136-145)
[2017-07-19 10:12] LABS: ANION GAP 7 MEQ/L (5-15); BICARBONATE 24.6 MEQ/L (21.0-32.0)
[2017-07-19 10:13] LABS: BLOOD UREA NITROGEN 17 MG/DL (7-18); MAGNESIUM 1.8 MG/DL (1.5-2.5)
[2017-07-19 10:15] LABS: ALT (GPT) 18 U/L (10-53)
[2017-07-19 10:16] LABS: AST (GOT) 8 U/L (15-37); GLOMERULAR FILTRATION RATE 84 ML/MIN (>89)
[2017-07-19 10:17] LABS: TOTAL BILIRUBIN ADULT 0.3 MG/DL (0.2-1.0)
[2017-07-19 10:18] LABS: ALKALINE PHOSPHATASE 132 U/L (45-117)
[2017-07-19 10:27] LABS: KERATOCYTES OCC (NORMAL); OVALOCYTES 2+ (NORMAL); SCAN/DIFF AUTO DIFF CONFIRMED
[2017-07-19] MEDS ORDERED: ASPI-516 CHEW (11:22)
[2017-07-19] MEDS ORDERED: PANTOPRAZOLE SODIUM 40 MG VIAL IVP ONE (11:45)
[2017-07-19] MEDS ORDERED: SODIUM CHLOR 0.9% 250 ML INJ 250 ML IV ONE (11:45)
[2017-07-19 11:53] LABS: BLOOD, URINE NEG (NEG); GLUCOSE,URINE NEG (NEG); KETONE, URINE NEG (NEG); NITRITE,URINE NEG (NEG)
[2017-07-19 12:02] LABS: METHOD OF COLLECTION CLEAN CATCH; URINE COLOR YELLOW (YELLW/STRAW)
[2017-07-19 12:03] LABS: COMMENT (UR) CULT NOT INDICATED; CULTURE IF INDICATED CULT NOT INDICATED; WBC, URINE 0-2 /hpf (0-5)
[2017-07-19] MEDS ORDERED: NALOXONE HCL 0.4 MG/ML AMP IV PUSH PRN (12:45)
[2017-07-19] MEDS ORDERED: SODIUM CHLORIDE 0.9% FLUSH 10 ML FLUSH IV FLUSH PRN (12:45)
[2017-07-19] MEDS ORDERED: cloNIDine HCL 0.1 MG TAB PO PRN (15:15)
[2017-07-19] MEDS ORDERED: DICYCLOMINE HCL 10 MG CAP PO PRN (15:15)
--- NOTE | 2017-07-19 15:17 | HHI.HP ---
[facility] Physician Roseanna Perez MD Admission Diagnosis Symptomatic anemia, GI bleed Diagnoses: (1) Syncope (2) Symptomatic anemia (3) Dehydration (4) Hypertension (5) Hyperlipidemia Chief Complaint: Syncope Travel History International Travel<30 Days: No Contact w/Intl Traveler <30 Da: No Traveled to Known Affected Are: No History of Present Illness Mrs. Molina is a 61-year-old female patient with a known medical history of CAD with previous CABG in 2010, hypercholesteremia and hypertension who presented to the ED after a syncopal episode. Patient states that as she was using the restroom she felt faint and called for her who reports that her eyes rolled back in her head and had a syncopal episode on the toilet. States she lost consciousness for a few seconds. Did not hit her head. Denies any recent headache, nausea, vomiting, ab pain, dysuria. Does admit to one bout of diarrhea as well as one bout of vomiting today. Denies any hematochezia. Appetite has been good. Denies any recent weight loss. Denies any chest pain or shortness of breath. It should be noted that patient was hospitalized earlier in June for chest pain, underwent a cardiac stress test which was unremarkable. Has since followed up with Dr. Lynch with no recent changes in mediations. Patient does state that since that time she has been feeling weak and increasingly fatigued. PCP is Dr. Martínez. Patient does have a history of seizures and on Tegretol, levels are WNL. Patient also states she has been out of her Plavix x 2 days now and will not receive additional pills for another few days from the insurance company. Review of Systems Constitutional: DENIES: Fever, Chills Eyes: DENIES: Blurred vision, Diplopia Respiratory: DENIES: Cough, Shortness of breath Cardiovascular: COMPLAINS OF: Syncope, DENIES: Chest pain Gastrointestinal: COMPLAINS OF: Diarrhea, Nausea, Vomiting, DENIES: Abdominal pain, Bloody stools, Constipation Musculoskeletal: COMPLAINS OF: Joint pain, Back pain, Neck pain Hematologic/lymphatic: DENIES: Bruising Neurologic: DENIES: Headache, Poor Balance Psychiatric: DENIES: Anxiety Except as stated in HPI: all other systems reviewed are Neg Past Family Social History Past Medical History CAD with history of CABG in 2010 Hypertension Hyperlipidemia History of CVA Seizure history Diabetes PVD Hypothyroidism Left carotid endarterectomy Depression History of tobacco use. Past Surgical History CABG 2010 Left cardiectomy Back surgery 1989 Tooth extraction Carpal tunnel Reported Medications Reported Meds & Active Scripts Active Clonidine (Clonidine HCl) 0.1 Mg Tab 0.1 Mg PO BID PRN Zantac (Ranitidine HCl) 150 Mg Tab 150 Mg PO BID Reported Aspirin 81 Mg Chew 81 Mg CHEW DAILY Flexeril (Cyclobenzaprine HCl) 5 Mg Tab 5 Mg PO TID Cilostazol 100 Mg Tab 100 Mg PO BID Vitamin D-1000 (Cholecalciferol) 1,000 Unit Tab 5,000 Units PO DAILY Bentyl (Dicyclomine HCl) 10 Mg Cap 10 Mg PO TID PRN Plavix (Clopidogrel Bisulfate) 75 Mg Tab 75 Mg PO DAILY Hydralazine (Hydralazine HCl) 100 Mg Tab 25 Mg PO Q6HR Take with meals Omeprazole 20 Mg Tab 20 Mg PO DAILY Nitroglycerin SL (Nitroglycerin) 0.4 Mg Subl 0.4 Mg SL DIRECTED PRN ONE TABLET UNDER THE TONGUE NEEDED FOR CHEST PAIN, MAY REPEAT EVERY FIVE MINUTES FOR A TOTAL OF 3 DOSES OR CALL 911 IF NO RELIEF Metformin (Metformin HCl) 1,000 Mg Tab 1,000 Mg PO BIDPC With meals Losartan (Losartan Potassium) 100 Mg Tab 100 Mg PO DAILY Carvedilol 12.5 Mg Tab 12.5 Mg PO BID Tegretol (Carbamazepine) 200 Mg Tab 200 Mg PO TID Atorvastatin (Atorvastatin Calcium) 40 Mg Tab 40 Mg PO HS Glipizide XL (Glipizide) 2.5 Mg Taryn 2.5 Mg PO DAILY Take with breakfast or first main meal of the day Amlodipine (Amlodipine Besylate) 10 Mg Tab 10 Mg PO DAILY Allergies: Coded Allergies: escitalopram (Unverified Allergy, Severe, Rash, 07/19/17) iodine (Unverified Allergy, Severe, SEIZURES, 07/19/17) levofloxacin (Unverified Allergy, Severe, HIVES, 07/19/17) phenobarbital (Unverified Allergy, Severe, HIVES, 07/19/17) phenytoin (Unverified Allergy, Severe, HIVES, 07/19/17) potassium iodide (Unverified Allergy, Severe, SEIZURES, 07/19/17) povidone-iodine (Unverified Allergy, Severe, SEIZURES, 07/19/17) sodium iodide (Unverified Allergy, Severe, SEIZURES, 07/19/17) sodium iodide (Unverified Allergy, Severe, SEIZURES, 07/19/17) acetaminophen (Unverified Allergy, Intermediate, Cramping, 07/19/17) hydrocodone (Unverified Allergy, Intermediate, Cramping, 07/19/17) venlafaxine (Unverified Allergy, Mild, RASH, 07/19/17) Active Ordered Medications Current Medications Medications (Trade) Dose Ordered Sig/Thierry Route Start Time Stop Time Status Last Admin Sodium Chloride 250 ml @ 15 mls/hr ONCE ONCE IV 07/19/17 11:45 07/20/17 04:24 (NS Flush) 2 ml UNSCH PRN IV FLUSH 07/19/17 12:45 (NS Flush) 2 ml BID IV FLUSH 07/19/17 21:00 (Narcan Inj) 0.4 mg UNSCH PRN IV PUSH 07/19/17 12:45 Family History Paternal medical history significant for cardiovascular disease. Maternal medical history significant for throat, lung and brain cancer. Social History Denies any current tobacco use, states she quit in 1988. Denies any alcohol use. Denies any illicit drug use. Physical Exam Vital Signs Vital Signs Date Time Temp Pulse Resp B/P (MAP) Pulse Ox O2 Delivery O2 Flow Rate FiO2 07/19/17 14:14 97.8 57 18 192/71 (111) 100 07/19/17 12:51 07/19/17 12:34 07/19/17 12:26 56 16 148/64 (92) 100 Room Air 07/19/17 08:41 16 07/19/17 08:38 97.6 56 16 169/60 (96) 100 Physical Exam GENERAL: This is a well-nourished, well-developed female patient, sitting up in bed in no apparent distress. SKIN: No rashes, ecchymoses or lesions. Warm and dry. HEAD: Atraumatic. Normocephalic. Pupils equal round and reactive. Extraocular motions intact. No scleral icterus. No injection or drainage. Nose without bleeding. Throat without erythema, tonsillar hypertrophy or exudate. Airway patent. NECK: Trachea midline. No JVD. Supple. CARDIOVASCULAR: Regular rate and rhythm. 2/6 systolic murmur. No gallops, or rubs. Right carotid bruit noted. RESPIRATORY: Clear to auscultation. Breath sounds equal bilaterally. No wheezes , rales, or rhonchi. GASTROINTESTINAL: Abdomen soft, non-tender, nondistended. No guarding. MUSCULOSKELETAL: Extremities without clubbing, cyanosis, or edema. No joint tenderness, effusion, or edema noted. NEUROLOGICAL: Awake and alert. Cranial nerves II through XII intact. Motor and sensory grossly within normal limits. Five out of 5 muscle strength in all muscle groups. Normal speech. Laboratory Laboratory Tests Test 07/19/17 10:00 07/19/17 11:30 White Blood Count 6.3 Red Blood Count 3.51 Hemoglobin 7.8 Hematocrit 25.8 Mean Corpuscular Volume 73.6 Mean Corpuscular Hemoglobin 22.2 Mean Corpuscular Hemoglobin Concent 30.1 Red Cell Distribution Width 15.5 Platelet Count 355 Mean Platelet Volume 7.3 Neutrophils (%) (Auto) 80.2 Lymphocytes (%) (Auto) 11.7 Monocytes (%) (Auto) 5.4 Eosinophils (%) (Auto) 2.1 Basophils (%) (Auto) 0.6 Neutrophils # (Auto) 5.2 Lymphocytes # (Auto) 0.7 Monocytes # (Auto) 0.3 Eosinophils # (Auto) 0.1 Basophils # (Auto) 0.0 CBC Comment AUTO DIFF Differential Comment AUTO DIFF CONFIRMED Ovalocytes 2+ Keratocytes OCC Blood Urea Nitrogen 17 Creatinine 0.71 Random Glucose 113 Total Protein 7.7 Albumin 3.4 Calcium Level 8.3 Magnesium Level 1.8 Alkaline Phosphatase 132 Aspartate Amino Transf (AST/SGOT) 8 Alanine Aminotransferase (ALT/SGPT) 18 Total Bilirubin 0.3 Sodium Level 135 Potassium Level 4.4 Chloride Level 103 Carbon Dioxide Level 24.6 Anion Gap 7 Estimat Glomerular Filtration Rate 84 Carbamazepine (Tegretol) Level 10.7 Urine Collection Type CLEAN CATCH Urine Color YELLOW Urine Turbidity CLEAR Urine pH 6.0 Urine Specific [place] 1.015 Urine Protein NEG Urine Glucose (UA) NEG Urine Ketones NEG Urine Occult Blood NEG Urine Nitrite NEG Urine Bilirubin NEG Urine Leukocyte Esterase NEG Urine WBC 0-2 Urine Squamous Epithelial Cells 6-8 Urine Hyaline Casts 20-24 Microscopic Urinalysis Comment CULT NOT INDICATED Urine Collection Time 11:30 Result Diagram: 07/19/17 1000 07/19/17 1000 Caprini VTE Risk Assessment Caprini VTE Risk Assessment: No/Low Risk (score <= 1) Caprini Risk Assessment Model Point Value = 1 Point Value = 2 Point Value = 3 Point Value = 5 Age 41-60 Minor surgery BMI > 25 kg/m2 Swollen legs Varicose veins or History of unexplained or recurrent spontaneous Oral contraceptives or hormone replacement Sepsis (< 1 month) Serious lung disease, including pneumonia (< 1 month) Abnormal pulmonary function Acute myocardial infarction Congestive heart failure (< 1 month) History of inflammatory bowel disease Medical patient at bed rest Age 61-74 Arthroscopic surgery Major open surgery (> 45 min) Laparoscopic surgery (> 45 min) Malignancy Confined to bed (> 72 hours) Immobilizing plaster cast Central venous access Age >= 75 History of VTE Family history of VTE Factor V Leiden Prothrombin [id number] Lupus anticoagulant Anticardiolipin antibodies Elevated serum homocysteine Heparin-induced thrombocytopenia Other congenital or acquired thrombophilia Stroke (< 1 month) Elective arthroplasty Hip, pelvis, or leg fracture Acute spinal cord injury (< 1 month) Prophylaxis Regimen Total Risk Factor Score Risk Level Prophylaxis Regimen 0-1 Low Early ambulation 2 Moderate Order ONE of the following: *Sequential Compression Device (SCD) *Heparin 5000 units SQ BID 3-4 Higher Order ONE of the following medications: *Heparin 5000 units SQ TID *Enoxaparin/Lovenox 40 mg SQ daily (WT < 150 kg, CrCl > 30 mL/min) *Enoxaparin/Lovenox 30 mg SQ daily (WT < 150 kg, CrCl > 10-29 mL/min) *Enoxaparin/Lovenox 30 mg SQ BID (WT < 150 kg, CrCl > 30 mL/min) AND/OR *Sequential Compression Device (SCD) 5 or more Highest Order ONE of the following medications: *Heparin 5000 units SQ TID (Preferred with Epidurals) *Enoxaparin/Lovenox 40 mg SQ daily (WT < 150 kg, CrCl > 30 mL/min) *Enoxaparin/Lovenox 30 mg SQ daily (WT < 150 kg, CrCl > 10-29 mL/min) *Enoxaparin/Lovenox 30 mg SQ BID (WT < 150 kg, CrCl > 30 mL/min) AND *Sequential Compression Device (SCD) Assessment and Plan Problem List: (1) Syncope ICD Code: R55 - Syncope and collapse Plan: Suspect secondary to symptomatic anemia Hemoglobin 7.8/Hematocrit 25.8 on presentation. Hemoccult positive. Consult placed to GI, appreciate further input and recommendations. 1 unit PRBC has been ordered in ED. Will follow H&H closely. Monitor for any signs of bleeding. (2) Symptomatic anemia ICD Code: D64.9 - Anemia, unspecified Status: Acute Plan: Please see plan above. (3) Hypertension ICD Code: I10 - Hypertension Status: Acute Plan: BP elevated on presentation. Continue home Apresoline, amlodipine and losartan. Clonidine available PRN. (4) Hyperlipidemia ICD Code: E78.5 - Hyperlipidemia Status: Chronic Plan: Continue home Atorvastatin. DVT Prophylaxis: SCDs. Lydia Yeh Jul 19, 2017 15:17
--- NOTE | 2017-07-19 16:30 | EKG ---
Date Performed: 07/19/2017 Time Performed: 09:35:58 PTAGE: 61 years EKG: SINUS BRADYCARDIA WITH FIRST DEGREE AV BLOCK MODERATE INTRAVENTRICULAR CONDUCTION DELAY NON SPECIFIC T-WAVE ABNORMALITY PROLONGED QT INTERVAL ABNORMAL ECG Compared to PREVIOUS TRACING , patient is now profoundly bradycardic. PREVIOUS TRACIN06/19/2017 08 .14 DOCTOR: Sylvia Lynch Interpretating Date/Time 07/19/2017 16:29:47
--- NOTE | 2017-07-19 16:42 | MB ---
cc: SHABANA BARRAZA MD, DR., DATE OF CONSULTATION 07/19/[address] Perez CONSULTATION July 19, 2017 REASON FOR CONSULTATION Symptomatic anemia. HISTORY OF PRESENT ILLNESS Ms. Molina is a 61-year-old lady who basically presented to the hospital after a syncopal episode. On presentation hemoglobin was 7.8. The patient denies any other symptoms. She says her bowels are moving regularly. She has chronic abdominal pain. There is no hematemesis or hematochezia reported. REVIEW OF SYSTEMS Currently doing well. The patient has no symptoms. PAST MEDICAL HISTORY 1. Coronary artery disease, 2. Hypertension, 3. Hyperlipidemia, 4. History of CVA, 5. Seizure disorder, 6. Diabetes, 7. Peripheral vascular disease, 8. Hypothyroidism, 9. Depression. PAST SURGICAL HISTORY 1. Coronary artery bypass 2010, 2. Vascular surgery in March of this year 3. Carotid endarterectomy 4. Back surgery MEDICATIONS On admission 1. Clonidine 2. Zantac, 3. Aspirin, 4. Flexeril 5. Cilostazol 6. Bentyl 7. Plavix 8. Hydralazine 9. Omeprazole 10. Nitroglycerin 11. Metformin 12. Losartan 13. Carvedilol 14. Tegretol 15. Atorvastatin 16. Glipizide 17. Amlodipine. ALLERGIES Multiple allergies documented including IODINE FAMILY HISTORY Noncontributory. SOCIAL HISTORY No tobacco, no alcohol PHYSICAL EXAMINATION GENERAL: A well-nourished lady in no apparent distress. VITAL SIGNS: Stable. HEAD/NECK: Anicteric sclerae. CHEST: Bilateral air entry with rales. ABDOMEN: Soft, nontender. No hepatosplenomegaly. Bowel sounds are present. KNITTING DEMONSTRATOR: Nonfocal. RECTAL: Exam deferred at this time LABORATORY DATA Hemoglobin of 7.8, creatinine is 0.71. Liver function tests are normal. IMPRESSION Symptomatic anemia. RECOMMENDATIONS The patient's last EGD and colonoscopy were over 10 years ago. She needs another EGD and colonoscopy. This can be done inpatient versus outpatient depending upon the patient's clinical course over the weekend. If she is here through the weekend, procedure can be scheduled for Saturday. Otherwise, she can be done as an outpatient. This has been discussed with her. Thank you for this referral. MD ЕЛЕНА Mott /4:08 PM /4:32 PM
[2017-07-19] MEDS: CYCLOBENZAPRINE HCL 10 MG TAB PO SCH (17:08)
[2017-07-19] MEDS: hydrALAZINE HCL 25 MG TAB PO SCH ×2 (17:08→23:00)
[2017-07-19] MEDS: carBAMazepine 200 MG TAB PO SCH (17:08)
[2017-07-19] MEDS: CLOPIDOGREL 75 MG TAB PO SCH (17:20)
[2017-07-19] MEDS: FAMOTIDINE 20 MG TAB PO SCH (20:12)
[2017-07-19] MEDS: CARVEDILOL 12.5 MG TAB PO SCH (20:12)
[2017-07-19] MEDS: SODIUM CHLORIDE 0.9% FLUSH 10 ML FLUSH IV FLUSH SCH (20:21)
[2017-07-19] MEDS ORDERED: ATORVASTATIN 40 MG TAB PO SCH (21:00)
[2017-07-19] MEDS: CILOSTAZOL 100 MG TAB PO SCH (21:12)
[2017-07-19] MEDS: cloNIDine HCL 0.1 MG TAB PO SCH ×2 (22:00→23:00)
[2017-07-20] VITALS: BP 151/79; PULSE 82; RESP 18; TEMP 98.2; O2SAT 97
[2017-07-20] MEDS: hydrALAZINE HCL 25 MG TAB PO SCH (06:00)
[2017-07-20 08:00] VITALS: BP 145/70; PULSE 59; RESP 16; TEMP 96; O2SAT 99
[2017-07-20 08:11] LABS: AUTOMATED NEUTROPHIL # 3.8 TH/MM3 (1.8-7.7); BASOPHIL % 0.8 % (0.0-2.0); EOSINOPHIL # 0.1 TH/MM3 (0-0.4); EOSINOPHIL % 2.9 % (0.0-4.0); HEMATOCRIT 27.2 % (35.0-46.0); LYMPH % 20.2 % (9.0-44.0); MEAN CELL VOLUME 74.5 FL (80.0-100.0); MEAN CORPUSCULAR HGB CONC 32.2 % (32.0-36.0); MONO % 6.7 % (0.0-8.0); NEUT % 69.4 % (16.0-70.0); PLATELET COUNT 348 TH/MM3 (150-450); RED BLOOD COUNT 3.65 MIL/MM3 (4.00-5.30); RED CELL DISTRIBUTION WIDTH 16.5 % (11.6-17.2); WHITE BLOOD COUNT 5.2 TH/MM3 (4.0-11.0)
[2017-07-20 08:15] LABS: HEMO FLAGS AUTO DIFF
[2017-07-20 08:25] LABS: POTASSIUM 4.1 MEQ/L (3.5-5.1)
[2017-07-20 08:31] LABS: BICARBONATE 26.6 MEQ/L (21.0-32.0)
[2017-07-20] MEDS: carBAMazepine 200 MG TAB PO SCH (08:31)
[2017-07-20] MEDS: CARVEDILOL 12.5 MG TAB PO SCH (08:31)
[2017-07-20] MEDS: CILOSTAZOL 100 MG TAB PO SCH (08:31)
[2017-07-20] MEDS: CYCLOBENZAPRINE HCL 10 MG TAB PO SCH (08:32)
[2017-07-20] MEDS: CLOPIDOGREL 75 MG TAB PO SCH (08:33)
[2017-07-20] MEDS: FAMOTIDINE 20 MG TAB PO SCH (08:33)
[2017-07-20] MEDS: cloNIDine HCL 0.1 MG TAB PO SCH (08:33)
[2017-07-20] MEDS: SODIUM CHLORIDE 0.9% FLUSH 10 ML FLUSH IV FLUSH SCH (08:39)
[2017-07-20 08:42] LABS: OVALOCYTES 1+ (NORMAL); SCAN/DIFF AUTO DIFF CONFIRMED
[2017-07-20] MEDS ORDERED: ASPIRIN 81 MG CHEW TAB CHEW SCH (09:00)
[2017-07-20] MEDS ORDERED: LOSARTAN 50 MG TAB PO SCH (09:00)
[2017-07-20] MEDS ORDERED: CHOLECALCIFEROL (VIT D3) 1000 UNIT TAB PO SCH (09:00)
[2017-07-20] MEDS ORDERED: PANTOPRAZOLE SOD 20 MG DELAYED RELEASE TAB PO SCH (09:00)
--- NOTE | 2017-07-20 09:55 | HHI.DCPOC ---
Discharge Care Plan Diagnosis: (1) Syncope (2) Hypertension (3) Diabetes (4) Hyperlipidemia (5) Symptomatic anemia (6) Ulcer, stomach peptic Your Health Problems Are: Bleeding Tendency Additional Problems Please hold Plavix until appointment with GI on Saturday. OK to resume Pletal and aspirin for now. Goals to Promote Your Health * To prevent worsening of your condition and complications * To maintain your health at the optimal level Directions to Meet Your Goals Take your medications as prescribed Follow your dietary instruction Follow activity as directed Keep your appointments as scheduled Take your immunizations and boosters as scheduled If your symptoms worsen call your PCP, if no PCP go to Urgent Care Center or Emergency Room Smoking is Dangerous to Your Health. Avoid second hand smoke Call the 24-hour hour crisis hotline for domestic abuse at Lydia Yeh Jul 20, 2017 09:55
--- NOTE | 2017-07-20 10:02 | HHI.PR ---
Subjective Remarks Follow up symptomatic anemia. Patient seen and examined, at bedside. Status post 1 unit PRBC. Feels well. Ambulating well. Eating well. Denies any pain. Denies any fever, chest pain, shortness of breath, weakness, ab pain, n/v/ d or dysuria. Spoke with Dr. Rodriguez who is Ok for patient to be discharged and to follow up on Saturday in the office to schedule EGD and colonoscopy. Objective Vitals Vital Signs Date Time Temp Pulse Resp B/P (MAP) Pulse Ox O2 Delivery O2 Flow Rate FiO2 07/20/17 08:00 96.0 59 16 145/70 (95) 99 07/20/17 00:00 98.2 82 18 151/79 (103) 97 07/19/17 22:57 97.9 65 16 198/81 97 07/19/17 20:00 98.1 66 19 190/81 (117) 98 07/19/17 18:51 96.6 67 14 179/75 98 07/19/17 18:50 96.6 67 14 179/75 70 07/19/17 18:38 97.8 71 14 195/80 97 07/19/17 17:50 98.8 62 16 168/73 (104) 98 07/19/17 14:14 97.8 57 18 192/71 (111) 100 07/19/17 12:51 07/19/17 12:34 07/19/17 12:26 56 16 148/64 (92) 100 Room Air I/O 07/19/17 07/19/17 07/19/17 07/20/17 07/20/17 07/20/17 07:00 15:00 23:00 07:00 15:00 23:00 Intake Total 1000 ml 700 ml Balance 1000 ml 700 ml Intake IV Total 1000 ml Packed Cells 400 ml Blood Product IV Normal Saline Flush 300 ml # Voids 1 3 Result Diagram: 07/20/1773907/20/17739 Objective Remarks GENERAL: This is a well-nourished, well-developed female patient, sitting up in bed in no apparent distress. SKIN: No rashes, ecchymoses or lesions. Warm and dry. HEAD: Atraumatic. Normocephalic. Pupils equal round and reactive. Extraocular motions intact. No scleral icterus. No injection or drainage. Nose without bleeding. Throat without erythema, tonsillar hypertrophy or exudate. Airway patent. NECK: Trachea midline. No JVD. Supple. CARDIOVASCULAR: Regular rate and rhythm. 2/6 systolic murmur. No gallops, or rubs. Right carotid bruit noted. RESPIRATORY: Clear to auscultation. Breath sounds equal bilaterally. No wheezes , rales, or rhonchi. GASTROINTESTINAL: Abdomen soft, non-tender, nondistended. No guarding. MUSCULOSKELETAL: Extremities without clubbing, cyanosis, or edema. No joint tenderness, effusion, or edema noted. NEUROLOGICAL: Awake and alert. Cranial nerves II through XII intact. Motor and sensory grossly within normal limits. Five out of 5 muscle strength in all muscle groups. Normal speech. A/P Problem List: (1) Syncope ICD Code: R55 - Syncope and collapse Plan: Suspect secondary to symptomatic anemia Hemoglobin 7.8/Hematocrit 25.8 on presentation. Hemoccult positive. Hemoglobin 8.8 today. GI has seen patient with further recs to undergo EGD and colonoscopy. OK to ct today with plans to make appointment for Saturday to schedule EGD and colonoscopy. Will hold Plavix for now per GI recs and continue ASA and pletal for now. Patient has been educated on the importance of monitoring for any acute bleeding. If present or any worsening symptoms to return back to the ED. (2) Symptomatic anemia ICD Code: D64.9 - Anemia, unspecified Status: Acute Plan: Please see plan above. (3) Hypertension ICD Code: I10 - Hypertension Status: Acute (4) Hyperlipidemia ICD Code: E78.5 - Hyperlipidemia Status: Chronic Plan: Continue home Atorvastatin. Discharge Planning Will DC home today. Lydia Yeh Jul 20, 2017 10:02
== END 2017-07-20 10:52 | disposition home or self-care (01) ==
LOC: PHED 08:35 → PHEDA 11:37 → PH3B 12:46
PROVIDERS: ADMIT Hospitalist; ATTEND Hospitalist
DX: R55 Syncope and collapse (principal); D64.9 Anemia, unspecified; I10 Essential (primary) hypertension; E78.5 Hyperlipidemia, unspecified; K92.2 Gastrointestinal hemorrhage, unspecified; E86.0 Dehydration; R53.1 Weakness; R06.02 Shortness of breath; R00.1 Bradycardia, unspecified; I44.0 Atrioventricular block, first degree; I45.81 Long QT syndrome; R94.31 Abnormal electrocardiogram [ECG] [EKG]; E78.00 Pure hypercholesterolemia, unspecified; R19.7 Diarrhea, unspecified; R11.10 Vomiting, unspecified; E03.9 Hypothyroidism, unspecified; E11.51 Type 2 diabetes mellitus with diabetic peripheral angiopathy without gangrene; I25.10 Atherosclerotic heart disease of native coronary artery without angina pectoris; Z87.891 Personal history of nicotine dependence; F32.9 Major depressive disorder, single episode, unspecified; I25.2 Old myocardial infarction; G40.909 Epilepsy, unspecified, not intractable, without status epilepticus; R10.9 Unspecified abdominal pain; G89.29 Other chronic pain; F41.0 Panic disorder [episodic paroxysmal anxiety]; Z95.1 Presence of aortocoronary bypass graft; Z79.899 Other long term (current) drug therapy; Z79.84 Long term (current) use of oral hypoglycemic drugs; Z86.73 Personal history of transient ischemic attack (TIA), and cerebral infarction without residual deficits
CPT/HCPCS: 36430; 80048; 80053; 80156; 81001; 83735; 85025; 86850; 86900; 86901; 86920; 93005; 99285; C9113; G0378; J2405; J7030; J7050; P9016

== ENCOUNTER 2018-03-27 04:30 | Observation (INO) ==
--- NOTE | 2018-03-27 04:49 | ED ---
HPI General Chief Complaint: Chest Pain Stated Complaint: Chest pain x 2 hrs Time Seen by Provider: 03/27/18 04:35 Source: patient Mode of arrival: ambulatory Limitations: no limitations History of Present Illness HPI narrative: 62-year-old female presents to the emergency department for complaint of 10 minutes of retrosternal chest pain with shortness of breath. Patient took last nitroglycerin prior to arrival to the emergency department. Patient did not take aspirin. Patient has known coronary vessel disease with previous CABG. Last stress test was in 2017. Patient was recently seen by her tin worker Dr. Lynch who started her on a new medication for her angina. Patient states that she has been having similar chest pain for months. Patient has been told that she cannot undergo any type of procedural intervention due to her anemia. Patient has not been able to tolerate iron supplementation. Patient states her hemoglobin has been staying around 8. Patient does not report any fever chills cough congestion sore throat earache but has noted some breath as well swelling of her feet. Patient denies other concerns or complaints. Patient states she keeps high blood pressure which is not unusual for her. Patient takes nitroglycerin frequently for her frequent chest pain. Patient is unable to identify exacerbating factors nitroglycerin provides relief of symptoms. MD complaint: chest pain Complete Quality Measures for STEMI Alert Patients STEMI Alert: No Onset (ago): day(s) Duration: constant Onset: during rest and during exertion Pain location: substernal Severity: moderate Quality: tightness and aching Pain radiation: none Relieving factors: nitroglycerin Exacerbating factors: exertion Associated symptoms: nausea, diaphoresis and dyspnea Treatments prior to arrival chest pain: nitroglycerin Related Data Home Medications Medication Instructions Recorded Confirmed amlodipine 10 mg PO DAILY 03/27/18 03/27/18 aspirin [Aspir-81] 81 mg PO DAILY 03/27/18 03/27/18 atorvastatin 40 mg PO DAILY 03/27/18 03/27/18 carbamazepine 100 mg PO BID 03/27/18 03/27/18 carvedilol 12.5 mg PO BID 03/27/18 03/27/18 clonidine HCl [Catapres] 0.1 mg PO BID 03/27/18 03/27/18 clopidogrel [Plavix] 75 mg PO DAILY 03/27/18 03/27/18 dicyclomine 10 mg PO QID 03/27/18 03/27/18 hydralazine 25 mg PO TID 03/27/18 03/27/18 isosorbide mononitrate 30 mg PO DAILY 03/27/18 03/27/18 losartan 100 mg PO DAILY 03/27/18 03/27/18 metformin 1,000 mg PO BID 03/27/18 03/27/18 nitroglycerin 0.4 mg SUBLINGUAL Q5-15M PRN 03/27/18 03/27/18 nitroglycerin [Nitrostat] 0.4 mg SUBLINGUAL Q5-15M PRN 03/27/18 03/27/18 ranitidine HCl 150 mg PO BID 03/27/18 03/27/18 Allergies Allergy/AdvReac Type Severity Reaction Status Date / Time escitalopram Allergy Severe Rash Verified 03/27/18 04:41 iodine Allergy Severe SEIZURES Verified 03/27/18 04:41 levofloxacin Allergy Severe HIVES Verified 03/27/18 04:41 phenobarbital Allergy Severe HIVES Verified 03/27/18 04:41 phenytoin Allergy Severe HIVES Verified 03/27/18 04:41 potassium iodide Allergy Severe SEIZURES Verified 03/27/18 04:41 povidone-iodine Allergy Severe SEIZURES Verified 03/27/18 04:41 sodium iodide Allergy Severe SEIZURES Verified 03/27/18 04:41 sodium iodide Allergy Severe SEIZURES Verified 03/27/18 04:41 acetaminophen Allergy Intermediate Cramping Verified 03/27/18 04:41 hydrocodone Allergy Intermediate Cramping Verified 03/27/18 04:41 venlafaxine Allergy Mild RASH Verified 03/27/18 04:41 Review of Systems ROS: all other systems reviewed are negative PMFSH History History Provided By: Patient (CAD dyslipidemia CVA hypertension she seizure disorder) and Medical Record Medical History Medical History Anemia (Acute) Angina at rest (Acute) Carotid artery disease (Acute) Diabetes (Acute) HTN (hypertension) (Acute) Heart attack (Acute) High cholesterol (Acute) History of right common carotid artery stent placement (Acute) Normal colonoscopy (Acute) Seizure (Acute) Spinal stenosis in cervical region (Acute) Stroke (Acute) Trigger finger of right hand (Acute) Surgical History Surgical History H/O arthroscopy of right knee (Acute) History of angioplasty of peripheral vessel (Acute) History of lumbar surgery (Acute) Social History Social History Substance History: No History of Abuse Smoking Status: Former smoker Tobacco Type: Cigarettes How Often Do You Have a Drink Containing Alcohol: Never Recent Travel in [facility] within the Last 8 Weeks: No Exam Narrative Exam Narrative: GENERAL: Well-developed well-nourished elderly female appears anxious in no respiratory distress GCS 15 SKIN: Focused skin assessment warm/dry. HEAD: Atraumatic. Normocephalic. EYES: Pupils equal and round. No scleral icterus. No injection or drainage. Conjunctival pallor ENT: No nasal bleeding or discharge. Mucous membranes pink and moist. NECK: Trachea midline. No JVD. CARDIOVASCULAR: Regular rate and rhythm. No murmur appreciated. Dorsalis pedis pulses and radial pulses 2+ to palpation bilaterally RESPIRATORY: No accessory muscle use. Clear to auscultation. Breath sounds equal bilaterally. GASTROINTESTINAL: Abdomen soft, non-tender, nondistended. Hepatic and splenic margins not palpable. MUSCULOSKELETAL: No obvious deformities. No clubbing. No cyanosis. No edema. NEUROLOGICAL: Awake and alert. No obvious cranial nerve deficits. Motor grossly within normal limits. Normal speech. PSYCHIATRIC: Appropriate mood and affect; insight and judgment normal. Course Reevaluation(s) Reevaluation #1: Patient remains chest pain-free case discussed with on-call [facility] MD for obs admission to [facility] per protocol Initial Documented Vital Signs Pulse Oximetry 100 03/27/18 04:35 Last Documented Vital Signs Temperature 97.8 F 03/27/18 04:38 Pulse Rate 57 L 03/27/18 05:16 Respiratory Rate 20 03/27/18 05:16 Blood Pressure 143/58 H 03/27/18 05:16 Pulse Oximetry 100 03/27/18 05:16 Medical Decision Making [facility] Narrative Medical decision making narrative: 62-year-old female with known coronary vessel disease hypertension dyslipidemia anemia resents to the emergency department for weeks of chest pain and shortness of breath with recurrence and exacerbation 10 minutes prior to arrival to the emergency department. Patient has been taking nitroglycerin daily for chest pain and ran out of nitroglycerin while having chest pain. Patient states she was seen recently by her tin worker Dr. Lynch who started her on a new angina medicine but she does not know the name of it. Patient takes Plavix and aspirin. Patient does not report any bloody or tarry stools. Patient's had nausea without vomiting. Patient placed on air sampling and monitoring with IV access and continuous pulse oximetry EKG performed shows sinus rhythm rate of [address] segment flattening without acute ST segment elevation or depression and no ectopy noted. Patient ordered Protonix 40 mg IV aspirin 162 mg by mouth sublingual nitroglycerin 0.4 mg to be taken every 5 minutes 3 doses as needed for chest pain or to hold for chest pain-free or for systolic blood pressure less than or equal to 100 mmHg. Patient is pain-free after sublingual nitroglycerin 1 dose pain 0/10 in intensity Patient's case discussed with medicine physician for chest pain center protocol ; patient is aware imaging study reveals no acute abnormality EKG shows no acute ST elevation and cardiac enzymes are normal range hemoglobin is stable at 8.4. Patient is agreeable to observation admission per chest pain center protocol. Chest pain resolved after one sublingual nitroglycerin. Differential Diagnosis Differential Diagnosis: Chest pain, ACS, myocardial infarction, atypical chest pain, anemia induced angina, PE, CHF, pneumonia Medical Records Medical records reviewed: Yes I reviewed the patient's medical records. 06/2017 nuclear stress test no EKG abnormalities to suggest ischemia large lateral wall infarct with global hypokinesis no change from 12/28/14 stable negative stress test Lab Data Lab results reviewed: Yes I reviewed the patient's lab results. Result diagrams: 03/27/18 04:36 03/27/18 04:36 Lab Results 03/27/18 03/27/18 03/27/18 Range/Units 04:36 04:36 04:36 CBC w Diff Slide review pending WBC 6.6 (4.0-11.0) th/mm3 RBC 3.92 L (4.00-5.30) mil/mm3 Hgb 8.4 L (11.6-15.3) gm/dL Hct 27.3 L (35.0-46.0) % MCV 69.6 L (80.0-100.0) fL MCH 21.4 L (27.0-34.0) pg MCHC 30.7 L (32.0-36.0) % RDW 15.6 (11.6-17.2) % Plt Count 549 H (150-450) th/mm3 MPV 7.8 (7.0-11.0) fL Neut % (Auto) 63.4 (16.0-70.0) % Lymph % (Auto) 23.0 (9.0-44.0) % [place] % (Auto) 7.6 (0.0-8.0) % Eos % (Auto) 2.1 (0.0-4.0) % Baso % (Auto) 3.9 H (0.0-2.0) % Neut # (Auto) 4.2 (1.8-7.7) th/mm3 Lymph # (Auto) 1.5 (1.0-4.8) th/mm3 [place] # (Auto) 0.5 (0.0-0.9) th/mm3 Eos # (Auto) 0.1 (0.0-0.4) th/mm3 Baso # (Auto) 0.3 H (0.0-0.2) th/mm3 WBC Differential . Diff Scan Auto diff confirmed Differential Comment . Dimorphic RBCs Present H (None) Ovalocytes 2+ H (None) Keratocytes 1+ H (None) PT 10.6 (9.8-11.6) sec INR 1.0 Ratio APTT 24.7 (24.3-30.1) sec Sodium 132 L (136-145) meq/L Potassium 4.3 (3.5-5.1) meq/L Chloride 97 L (98-107) meq/L Carbon Dioxide 26.9 (21.0-32.0) meq/L Anion Gap 8 (5-15) meq/L BUN 10 (7-18) mg/dL Creatinine 0.76 (0.50-1.00) mg/dL Estimated GFR 77 L (>89) mL/min POC Glucose (68-110) mg/dl Random Glucose 127 H (74-106) mg/dL Calcium 8.9 (8.5-10.1) mg/dL Magnesium 1.4 L (1.5-2.5) mg/dL Total Creatine Kinase 65 (26-192) U/L Troponin I Less than 0.02 L (0.02-0.05) ng/mL B-Natriuretic Peptide (0-100) pg/mL 03/27/18 03/27/18 Range/Units 04:36 05:03 CBC w Diff WBC (4.0-11.0) th/mm3 RBC (4.00-5.30) mil/mm3 Hgb (11.6-15.3) gm/dL Hct (35.0-46.0) % MCV (80.0-100.0) fL MCH (27.0-34.0) pg MCHC (32.0-36.0) % RDW (11.6-17.2) % Plt Count (150-450) th/mm3 MPV (7.0-11.0) fL Neut % (Auto) (16.0-70.0) % Lymph % (Auto) (9.0-44.0) % [place] % (Auto) (0.0-8.0) % Eos % (Auto) (0.0-4.0) % Baso % (Auto) (0.0-2.0) % Neut # (Auto) (1.8-7.7) th/mm3 Lymph # (Auto) (1.0-4.8) th/mm3 [place] # (Auto) (0.0-0.9) th/mm3 Eos # (Auto) (0.0-0.4) th/mm3 Baso # (Auto) (0.0-0.2) th/mm3 WBC Differential Diff Scan Differential Comment Dimorphic RBCs (None) Ovalocytes (None) Keratocytes (None) PT (9.8-11.6) sec INR Ratio APTT (24.3-30.1) sec Sodium (136-145) meq/L Potassium (3.5-5.1) meq/L Chloride (98-107) meq/L Carbon Dioxide (21.0-32.0) meq/L Anion Gap (5-15) meq/L BUN (7-18) mg/dL Creatinine (0.50-1.00) mg/dL Estimated GFR (>89) mL/min POC Glucose 122 H (68-110) mg/dl Random Glucose (74-106) mg/dL Calcium (8.5-10.1) mg/dL Magnesium (1.5-2.5) mg/dL Total Creatine Kinase (26-192) U/L Troponin I (0.02-0.05) ng/mL B-Natriuretic Peptide 184 H (0-100) pg/mL Imaging Data Radiologist's impression: Chest X-Ray 03/27/18 04:35 CONCLUSION: Clear lungs. ECG Data EKG Prior to Arrival: No Attestation: I personally reviewed and interpreted this ECG as follows: Prior ECG tracings: available for review Interpretation: EKG: Normal sinus rhythm rate [address] elevation injury pattern or ectopy noted nonspecific ST-T changes flattening of the ST segments inferolaterally no ectopy Discharge Plan Discharge Disposition Patient Disposition: 30 Still Patient Discharge Condition Condition: Stable Discharge Details Diagnosis: Chest pain Physicians Team ED Provider: Siri Lema Primary Care Provider: Simba Perez Attending Provider: Shilpi Moore Status ED Status: Admitted Observation Patient
[2018-03-27 04:50] LABS: Baso # (Auto) 0.3 th/mm3 (0.0-0.2); Baso % (Auto) 3.9 % (0.0-2.0); Eos # (Auto) 0.1 th/mm3 (0.0-0.4); Eos % (Auto) 2.1 % (0.0-4.0); Hematocrit 27.3 % (35.0-46.0); Hemoglobin 8.4 gm/dL (11.6-15.3); Lymph # (Auto) 1.5 th/mm3 (1.0-4.8); Mean Corpuscular Hemoglobin 21.4 pg (27.0-34.0); Mean Corpuscular Volume 69.6 fL (80.0-100.0); Mean Platelet Volume 7.8 fL (7.0-11.0); Mono # (Auto) 0.5 th/mm3 (0.0-0.9); Mono % (Auto) 7.6 % (0.0-8.0); Neut # (Auto) 4.2 th/mm3 (1.8-7.7); Neut % (Auto) 63.4 % (16.0-70.0); Platelet Count 549 th/mm3 (150-450); Red Blood Count 3.92 mil/mm3 (4.00-5.30); Red Cell Distribution Width 15.6 % (11.6-17.2); White Blood Count 6.6 th/mm3 (4.0-11.0)
[2018-03-27] MEDS ORDERED: Pantoprazole Inj 40 MG Vial IV.PUSH ONE (04:59)
[2018-03-27] MEDS ORDERED: Sodium Chlor 0.9% Inj 500 ML IV.SIG SCH (05:00)
[2018-03-27 05:01] LABS: Chloride 97 meq/L (98-107); Mean Corpuscular HGB Conc 30.7 % (32.0-36.0); Potassium 4.3 meq/L (3.5-5.1); Sodium 132 meq/L (136-145)
[2018-03-27 05:03] LABS: Calcium 8.9 mg/dL (8.5-10.1)
[2018-03-27 05:04] LABS: Anion Gap 8 meq/L (5-15); Blood Urea Nitrogen 10 mg/dL (7-18); Carbon Dioxide 26.9 meq/L (21.0-32.0); Glucose,Random 127 mg/dL (74-106); Magnesium 1.4 mg/dL (1.5-2.5)
[2018-03-27 05:06] LABS: Activated Partial Thrombo Time 24.7 sec (24.3-30.1); Prothrombin Time 10.6 sec (9.8-11.6)
[2018-03-27 05:07] LABS: Glomerular Filtration Rate 77 mL/min (>89)
--- NOTE | 2018-03-27 05:18 | XR ---
EXAM DATE: 03/27/2018 5:13 AM EDT AGE/SEX: 62 years / Female INDICATIONS: Chest pain. CLINICAL DATA: This is the patient's initial encounter. Patient reports that signs and symptoms have been present for 1 day and indicates a pain score of 5/10. MEDICAL/SURGICAL HISTORY: Hypertension. CABG. COMPARISON: [facility], CHEST SINGLE AP, 06/19/2017. . FINDINGS: A single AP view of the chest demonstrates the lungs to be symmetrically aerated without evidence of mass, infiltrate or effusion. The cardiomediastinal contours are unremarkable. Osseous structures a re intact. Median sternotomy wires are noted. CONCLUSION: Clear lungs. Electronically signed by: Otoniel Stack MD 03/27/2018 5:17 AM EDT
[2018-03-27 05:54] LABS: Creatine Kinase 65 U/L (26-192)
[2018-03-27] MEDS ORDERED: Magnesium Oxide 400 MG Tablet PO ONE (06:11)
[2018-03-27 06:28] LABS: Dimorphic RBC Present; Ovalocytes 2+
[2018-03-27 08:22] LABS: Creatine Kinase 55 U/L (26-192)
[2018-03-27] MEDS ORDERED: Dextrose 50% in Water 50 ML Vial IV.PUSH PRN (09:42)
[2018-03-27] MEDS ORDERED: Morphine Sulfate Inj 2 MG/ML Vial IV.PUSH PRN (09:54)
--- NOTE | 2018-03-27 09:56 | P.HPIM ---
History of Present Illness Primary Care Physician: Simba Perez MD Chief Complaint: chest pain History of Present Illness: Patient is a 62-year-old female with a history of coronary disease. She represents with chest pain intermittently over the last several months. For the last 4 months chest pain at rest and worse when she lays flat. She also complains of shortness of breath and tightness. Chest pain is usually relieved with nitroglycerin tablets but she ran out. She called her [employer] nurse and they recommended she come to the hospital. In the past few weeks she has seen her quality facilitator who added Imdur to her daily regimen I recommended medical management. In the midst of all that she has been diagnosed with anemia of unknown cause. She has had a transfusion in the past for hemoglobin of 7.8. Currently her hemoglobin is 8.8. She is prescribed iron tablets and recently had a colonoscopy and upper endoscopy records are pending from the outpatient setting. Patient has been on aspirin and Plavix (history of peripheral artery disease). I did speak with her quality facilitator recommend patient continue with further evaluation in the hospital but out of chest pain center. This is reasonable given the patient's continued angina while in the emergency room with minor EKG changes which show some minor ST depression in the lateral leads. On my review the chest x-ray is unremarkable. Cardiac enzymes have remained normal. Patient is is without chest pain at this time after nitroglycerin. - Diagnosis (1) Chest pain (2) DM2 (diabetes mellitus, type 2) (3) Anemia (4) PAD (peripheral artery disease) [facility] - History History Provided By: Patient (CAD dyslipidemia CVA hypertension she seizure disorder), Medical Record - Medical History Medical History: Medical History (Last Reviewed 03/27/18 @ 09:47 by Shilpi Moore MD) Anemia Angina at rest Carotid artery disease Diabetes HTN (hypertension) Heart attack High cholesterol History of right common carotid artery stent placement Normal colonoscopy Seizure Spinal stenosis in cervical region Stroke Trigger finger of right hand - Surgical History Surgical History: Surgical History (Last Reviewed 03/27/18 @ 09:47 by Shilpi Moore MD) H/O arthroscopy of right knee History of angioplasty of peripheral vessel History of lumbar surgery - Family History Family History: Family History (Last Updated 03/27/18 @ 09:48 by Shilpi Moore MD) Other CAD (coronary artery disease) Throat cancer - Tobacco History Tobacco Use In Past 30 Days: No Smoking Status: Former smoker Tobacco Type: Cigarettes - Alcohol History How Often Do You Have a Drink Containing Alcohol: Never - Substance Use History Substance History: No History of Abuse - Travel History Recent Travel in the [facility] Within the Last 8 Weeks: No - Immunization History Tetanus Immunization: >5 Years Medications and Allergies Active Medications: Active Medications Amlodipine Besylate (Norvasc) 10 mg PO DAILY [facility] Aspirin (Aspirin) 325 mg PO DAILY [facility] Atorvastatin Calcium (Lipitor) 40 mg PO DAILY [facility] Carvedilol (Coreg) 12.5 mg PO BID [facility] Clonidine HCl (Clonidine (Nicu) 20 Mcg/Ml Liq) 100 mcg PO BID [facility] Clopidogrel Bisulfate (Plavix) 75 mg PO DAILY [facility] Dicyclomine HCl (Bentyl) 10 mg PO QID [facility] Hydralazine HCl (Apresoline) 25 mg PO TID [facility] Isosorbide Mononitrate (Imdur) 30 mg PO DAILY [facility] Nitroglycerin (Nitrostat Sl) 0.4 mg SL Q5M PRN PRN Reason: CHEST PAIN Last Admin: 03/27/18 08:23 Dose: 0.4 mg Non-Formulary Medication (Carbamazepine [Carbamazepine]) 100 mg PO BID [facility] Non-Formulary Medication (Losartan [Losartan]) 100 mg PO DAILY [facility] Non-Formulary Medication (Nitroglycerin [Nitroglycerin]) 0.4 mg SL Q5-15M PRN PRN Reason: Chest Pain Non-Formulary Medication (Ranitidine Hcl [Ranitidine Hcl]) 150 mg PO BID [facility] Sodium Chloride (Ns Flush) 2 ml IV.FLUSH UNSCH PRN PRN Reason: FLUSH AFTER USING IV ACCESS Last Admin: 03/27/18 05:11 Dose: 2 ml Sodium Chloride (Ns Flush) 2 ml IV.FLUSH PRN PRN PRN Reason: FLUSH AFTER USING IV ACCESS Sodium Chloride (Ns Flush) 2 ml IV.FLUSH BID [facility] Allergies Allergy/AdvReac Type Severity Reaction Status Date / Time escitalopram Allergy Severe Rash Verified 03/27/18 04:41 iodine Allergy Severe SEIZURES Verified 03/27/18 04:41 levofloxacin Allergy Severe HIVES Verified 03/27/18 04:41 phenobarbital Allergy Severe HIVES Verified 03/27/18 04:41 phenytoin Allergy Severe HIVES Verified 03/27/18 04:41 potassium iodide Allergy Severe SEIZURES Verified 03/27/18 04:41 povidone-iodine Allergy Severe SEIZURES Verified 03/27/18 04:41 sodium iodide Allergy Severe SEIZURES Verified 03/27/18 04:41 sodium iodide Allergy Severe SEIZURES Verified 03/27/18 04:41 acetaminophen Allergy Intermediate Cramping Verified 03/27/18 04:41 hydrocodone Allergy Intermediate Cramping Verified 03/27/18 04:41 venlafaxine Allergy Mild RASH Verified 03/27/18 04:41 Home Medications Medication Instructions Recorded Confirmed Type amlodipine 10 mg PO DAILY 03/27/18 03/27/18 History aspirin [Aspir-81] 81 mg PO DAILY 03/27/18 03/27/18 History atorvastatin 40 mg PO DAILY 03/27/18 03/27/18 History carbamazepine 100 mg PO BID 03/27/18 03/27/18 History carvedilol 12.5 mg PO BID 03/27/18 03/27/18 History clonidine HCl [Catapres] 0.1 mg PO BID 03/27/18 03/27/18 History clopidogrel [Plavix] 75 mg PO DAILY 03/27/18 03/27/18 History dicyclomine 10 mg PO QID 03/27/18 03/27/18 History hydralazine 25 mg PO TID 03/27/18 03/27/18 History isosorbide mononitrate 30 mg PO DAILY 03/27/18 03/27/18 History losartan 100 mg PO DAILY 03/27/18 03/27/18 History metformin 1,000 mg PO BID 03/27/18 03/27/18 History nitroglycerin 0.4 mg SUBLINGUAL Q5-15M PRN 03/27/18 03/27/18 History nitroglycerin [Nitrostat] 0.4 mg SUBLINGUAL Q5-15M PRN 03/27/18 03/27/18 History ranitidine HCl 150 mg PO BID 03/27/18 03/27/18 History Exam Vital signs: Vital Signs 03/27/18 04:35 03/27/18 04:38 03/27/18 04:55 Temperature 97.8 F Pulse Rate 70 Respiratory Rate 24 Blood Pressure 192/85 H Blood Pressure [Left Arm] 133/65 Blood Pressure [Right Arm] Pulse Oximetry 100 100 03/27/18 04:58 03/27/18 05:00 03/27/18 05:04 Temperature Pulse Rate 59 L Respiratory Rate Blood Pressure Blood Pressure [Left Arm] Blood Pressure [Right Arm] 131/56 L Pulse Oximetry 100 03/27/18 05:16 03/27/18 06:43 03/27/18 08:00 Temperature Pulse Rate 57 L 68 82 Respiratory Rate 20 18 20 Blood Pressure 143/58 H 168/69 H 169/56 H Blood Pressure [Left Arm] Blood Pressure [Right Arm] Pulse Oximetry 100 03/27/18 08:30 Temperature Pulse Rate 62 Respiratory Rate 16 Blood Pressure 176/89 H Blood Pressure [Left Arm] Blood Pressure [Right Arm] Pulse Oximetry 100 Intake & Output 03/26/18 03/27/18 03/27/18 18:59 06:59 18:59 Weight 80 kg Narrative: GENERAL: Pale, well-nourished, well-developed patient. SKIN: Warm and dry. HEAD: Normocephalic. EYES: No scleral icterus. No injection or drainage. NECK: Supple, trachea midline. No JVD or lymphadenopathy. CARDIOVASCULAR: Regular rate and rhythm with 5 out of 6 systolic murmur, do not appreciate gallops or rubs RESPIRATORY: Breath sounds equal bilaterally. No accessory muscle use. GASTROINTESTINAL: Abdomen soft, non-tender, nondistended. MUSCULOSKELETAL: No cyanosis, or edema. BACK: Nontender without obvious deformity. No CVA tenderness. NEUROLOGICAL: Awake and alert. Cranial nerves II through XII intact. Motor and sensory grossly within normal limits. Five out of 5 muscle strength in all muscle groups. Normal speech. Results - Labs CBC & Chem 7: 03/27/18 04:36 03/27/18 04:36 Labs: Short CBC 03/27/18 Range/Units 04:36 WBC 6.6 (4.0-11.0) th/mm3 Hgb 8.4 L (11.6-15.3) gm/dL Hct 27.3 L (35.0-46.0) % Plt Count 549 H (150-450) th/mm3 BMP 03/27/18 04:36 Sodium 132 L Potassium 4.3 Chloride 97 L Carbon Dioxide 26.9 BUN 10 Creatinine 0.76 Calcium 8.9 Cardiac Enzymes 03/27/18 03/27/18 Range/Units 04:36 07:40 Total Creatine Kinase 65 55 (26-192) U/L Troponin I Less than 0.02 L Less than 0.02 L (0.02-0.05) ng/mL - Imaging Impressions Chest X-Ray 03/27/18 04:35 CONCLUSION: Clear lungs. Caprini VTE Risk Assessment Caprini VTE Risk Assessment: Moderate/High Risk (score >= 2) Caprini Risk Assessment Model: Point Value = 1 Point Value = 2 Point Value = 3 Point Value = 5 Age 41-60 Minor surgery BMI > 25 kg/m2 Swollen legs Varicose veins or History of unexplained or recurrent spontaneous Oral contraceptives or hormone replacement Sepsis (< 1 month) Serious lung disease, including pneumonia (< 1 month) Abnormal pulmonary function Acute myocardial infarction Congestive heart failure (< 1 month) History of inflammatory bowel disease Medical patient at bed rest Age 61-74 Arthroscopic surgery Major open surgery (> 45 min) Laparoscopic surgery (> 45 min) Malignancy Confined to bed (> 72 hours) Immobilizing plaster cast Central venous access Age >= 75 History of VTE Family history of VTE Factor V Leiden Prothrombin [id number] Lupus anticoagulant Anticardiolipin antibodies Elevated serum homocysteine Heparin-induced thrombocytopenia Other congenital or acquired thrombophilia Stroke (< 1 month) Elective arthroplasty Hip, pelvis, or leg fracture Acute spinal cord injury (< 1 month) Prophylaxis Regimen: Total Risk Factor Score Risk Level Prophylaxis Regimen 0-1 Low Early ambulation 2 Moderate Order ONE of the following: *Sequential Compression Device (SCD) *Heparin 5000 units SQ BID 3-4 Higher Order ONE of the following medications: *Heparin 5000 units SQ TID *Enoxaparin/Lovenox 40 mg SQ daily (WT < 150 kg, CrCl > 30 mL/min) *Enoxaparin/Lovenox 30 mg SQ daily (WT < 150 kg, CrCl > 10-29 mL/min) *Enoxaparin/Lovenox 30 mg SQ BID (WT < 150 kg, CrCl > 30 mL/min) AND/OR *Sequential Compression Device (SCD) 5 or more Highest Order ONE of the following medications: *Heparin 5000 units SQ TID (Preferred with Epidurals) *Enoxaparin/Lovenox 40 mg SQ daily (WT < 150 kg, CrCl > 30 mL/min) *Enoxaparin/Lovenox 30 mg SQ daily (WT < 150 kg, CrCl > 10-29 mL/min) *Enoxaparin/Lovenox 30 mg SQ BID (WT < 150 kg, CrCl > 30 mL/min) AND *Sequential Compression Device (SCD) Assessment and Plan - Assessment (1) Chest pain Code(s): R07.9 - Chest pain, unspecified Status: Acute Plan: Patient with unstable angina. Did discuss with Dr. Lynch who agreed to see the patient. Recently Imdur was added in outpatient setting. Patient reports increased nitroglycerin usage at home. Pain does seem positional per patient reports We will follow-up echocardiogram to rule out pericarditis Morphine, oxygen, nitro paste, beta-corry, aspirin, Lovenox (2) DM2 (diabetes mellitus, type 2) Code(s): E11.9 - Type 2 diabetes mellitus without complications Status: Acute Plan: Continue with ADA diet metformin held, SSI (3) Anemia Code(s): D64.9 - Anemia, unspecified Status: Acute Plan: Hemoglobin currently 8.8, history transfusion in the past Records to be obtained from the GI office of Dr. Dr. Chao ([id number]) Patient currently on iron tablets but has difficulty with adherence (4) PAD (peripheral artery disease) Code(s): I73.9 - Peripheral vascular disease, unspecified Status: Acute Plan: Currently on Plavix and aspirin at home Continue outpatient follow-up with cardiology
[2018-03-27] MEDS: Aspirin 325 MG Tablet PO SCH (10:23)
[2018-03-27] MEDS: Enoxaparin Inj 40 MG/0.4 ML Syringe SQ SCH (10:27)
[2018-03-27] MEDS: amLODIPine 10 MG Tablet PO SCH (10:28)
[2018-03-27] MEDS: Carvedilol 12.5 MG Tablet PO SCH ×2 (10:28→21:51)
[2018-03-27] MEDS ORDERED: Isosorbide Mononitrate 30 MG ER 24HR Tablet (Imdur) PO SCH (11:00)
[2018-03-27] MEDS: carBAMazepine 200 MG Tablet PO SCH ×2 (12:01→21:50)
[2018-03-27] MEDS: Famotidine 20 MG Tablet PO SCH ×2 (12:01→21:51)
[2018-03-27] MEDS: hydrALAZINE 25 MG Tablet PO SCH ×2 (12:01→18:44)
[2018-03-27] MEDS: Insulin NovoLOG Aspart Correctional Sugar Inj SQ SCH ×3 (12:02→23:32)
[2018-03-27 14:43] LABS: % Iron Saturation 3.9 % (20-50)
[2018-03-27] MEDS: Dicyclomine 10 MG Capsule PO SCH ×3 (15:16→21:52)
[2018-03-27 17:35] LABS: Hemoglobin A1c 6.7 % (4.3-6.0)
--- NOTE | 2018-03-27 18:39 | MB ---
cc: Sylvia Lynch MD, Beth A MD DATE: 03/27/2018 REASON FOR CONSULTATION: Chest pain. HISTORY OF PRESENT ILLNESS: Ms. Patricia Molina is a 62-year-old patient of mine who does have a history of previous CABG, ischemic cardiomyopathy, severe peripheral vascular disease and anemia. The patient was seen last week and was noted to have intermittent episodes of chest pain that were relieved with nitro. We did start Imdur 30 mg a day at that time. She also noted that she had relief after transfusions. The patient subsequently had multiple episodes of discomfort and ran out of nitroglycerin. This precipitated his emergency room visit. The patient is currently pain free. ALLERGIES: DILANTIN, EFFEXOR, IODINE, LEVAQUIN, LEXAPRO AND PHENOBARBITAL. OUTPATIENT MEDICATIONS: 1. Amlodipine 10 mg a day. 2. Aspirin 81 mg a day. 3. Atorvastatin 40 mg at bedtime. 4. Coreg 12.5 mg b.i.d. 5. Clonidine 0.1 mg b.i.d. 6. Cyclobenzaprine. 7. Hydralazine 25 mg q.6 hours. 8. Imdur 30 mg daily. 9. Losartan 100 mg a day. 10. Metformin. 11. Nitroglycerin. 12. Plavix 13. Ranitidine 14. Tegretol. 15. Vitamin D. PAST MEDICAL HISTORY: Significant for angina, anxiety, aortic stenosis with a mean gradient of 18 mmHg in 09/2017, coronary artery disease with a CABG: DANGELO to LAD, SVG to PLB/RCA, OM and a Y-graft to the ramus in 07/2011, ischemic cardiomyopathy, carotid artery disease, status post carotid stent, CVA, colon polyps, depression, diabetes, GERD, gastritis, hypertension, hyperlipidemia, hyponatremia, noncompliance, obesity, PAD, syncope, TIA. SOCIAL HISTORY: The patient is a former smoker and is . REVIEW OF SYSTEMS: The patient does report some recent allergies. Other than this and what is mentioned in the HPI, all 12 systems are negative. PHYSICAL EXAMINATION: VITAL SIGNS: 97.4, 60, 15, 115/50. Her blood pressure on arrival was 176/89. GENERAL: She is an obese female who is in no apparent distress. NECK: Free from JVD. LUNGS: Have some bibasilar rales. CARDIAC: She has a harsh systolic ejection murmur. No rubs or gallops are appreciated. ABDOMEN: Soft. EXTREMITIES: Free from edema. LABORATORY DATA: Significant for a BNP of 184, troponin of less than 0.02, hemoglobin is 8.4. CARDIOLOGY STUDIES: EKG shows sinus rhythm with marked ST depression. IMPRESSION: 1. Angina - the patient has a history of previous coronary artery bypass graft and has had ongoing angina that has most recently been exacerbated by her anemia. Any further increase in demand such as uncontrolled hypertension clearly aggravates this and makes her ischemic. Ideally her anemia would be treated. The patient is being followed by gastroenterology for this. In the interim, we will have to continue to pursue medical management. I am going to increase her Imdur. As well, I think it is most appropriate to discontinue her Plavix given the numerous complications that she has had with the anemia and cardiac ischemia. She is clearly a poor catheterization lab candidate at this time given the anemia. 2. Hypertension - At this point, I will continue her present medications. 3. Anemia - this will be per the primary team. DISPOSITION: If the patient is reasonably controlled in terms of blood pressure and angina, it would be reasonable to discharge her tomorrow morning. MD GRIS Faria/ , 06:03 PM , 06:15 PM
--- NOTE | 2018-03-27 19:39 | ECHRPT ---
Indication: Chest pain, unspecified CONCLUSIONS The left ventricular systolic function is moderately impaired with an estimated ejection fraction ab out 35% (imaging is technically difficult. Normal left ventricular size. Wall thickness is normal. Mild mitral valve regurgitation. Mild aortic valve stenosis. Leaflets are hard to visualize. At least mild calcification. There is trace tricuspid valve regurgitation. The estimated pulmonary arterial pressure is 26.3 mmHg. BP: / HR: Rhythm: Sinus MEASUREMENTS (Male / Female) Normal Values Technical Quality:Technically difficult study 2D ECHO LV Diastolic Diameter PLAX 5.0 cm 4.2 - 5.9 / 3.9 - 5.3 cm LV Systolic Diameter PLAX 4.0 cm IVS Diastolic Thickness 0.9 cm 0.6 - 1.0 / 0.6 - 0.9 cm LVPW Diastolic Thickness 0.9 cm 0.6 - 1.0 / 0.6 - 0.9 cm LV Relative Wall Thickness 0.4 LVOT Diameter 2.0 cm M-MODE Aortic Root Diameter MM 2.6 cm LA Systolic Diameter MM 3.5 cm LA Ao Ratio MM 1.3 AV Cusp Separation MM 1.3 cm DOPPLER AV Peak Velocity 256.6 cm/s AV Peak Gradient 26.3 mmHg AV Mean Gradient 15.3 mmHg AV Velocity Time Integral 57.4 cm LVOT Peak Velocity 76.5 cm/s LVOT Peak Gradient 2.3 mmHg AV Area Cont Eq pk 0.9 cm MR Peak Velocity 523.0 cm/s MR Peak Gradient 109.4 mmHg Mitral E Point Velocity 67.6 cm/s Mitral A Point Velocity 104.0 cm/s Mitral E to A Ratio 0.7 LV E' Lateral Velocity 7.9 cm/s Mitral E to LV E' Lateral Ratio 8.6 LV E' Septal Velocity 6.4 cm/s Mitral E to LV E' Septal Ratio 10.5 TR Peak Velocity 202.0 cm/s TR Peak Gradient 16.3 mmHg Right Atrial Pressure 10.0 mmHg Pulmonary Artery Systolic Pressu 26.3 mmHg Right Ventricular Systolic Press 26.3 mmHg PV Peak Velocity 105.0 cm/s PV Peak Gradient 4.4 mmHg FINDINGS LEFT VENTRICLE The left ventricular systolic function is moderately impaired with an estimated ejection fraction ab out 35% (imaging is technically difficult. Normal left ventricular size. Wall thickness is normal. RIGHT VENTRICLE Normal right ventricular size and systolic function. LEFT ATRIUM The left atrial size is normal. RIGHT ATRIUM The right atrial size is normal. ATRIAL SEPTUM Normal atrial septal thickness without atrial level shunting by limited color doppler interrogation. AORTA The aortic root and proximal ascending aorta are normal in size on limited imaging. MITRAL VALVE Mild mitral valve regurgitation. AORTIC VALVE Mild aortic valve stenosis. Leaflets are hard to visualize. At least mild calcification. TRICUSPID VALVE There is trace tricuspid valve regurgitation. The estimated pulmonary arterial pressure is 26.3 mmHg. PULMONARY VALVE No pulmonary valve regurgitation or stenosis. VESSELS The inferior vena cava is normal in size. PERICARDIUM No pericardial effusion. Saul Payne MD (Electronically Signed) Final Date:27 March 2018 19:38
--- NOTE | 2018-03-27 21:49 | ECG ---
Date Performed: 03/27/2018 Time Performed: 08:21:25 PTAGE: 62 years EKG: Sinus rhythm BORDERLINE RIGHT AXIS DEVIATION MODERATE INTRAVENTRICULAR CONDUCTION DELAY ST DEVIATION AND MARKED T -WAVE ABNORMALITY PREVIOUS TRACING : 03/27/2018 07.40 Compared to previous tracing, ST-T changes more prom inent DOCTOR: Bonita Huddleston Interpretating Date/Time 03/27/2018 21:48:43
[2018-03-27] MEDS: Isosorbide Mononitrate 60 MG ER 24HR Tablet (Imdur) PO SCH (21:51)
--- NOTE | 2018-03-27 21:52 | ECG ---
Date Performed: 03/27/2018 Time Performed: 07:40:06 PTAGE: 62 years EKG: SINUS BRADYCARDIA ST DEVIATION AND MODERATE T-WAVE ABNORMALITY ABNORMAL ECG PREVIOUS TRACING : 07/19/2017 09.35 Since the previous tracing, no significant change noted DOCTOR: Bonita Huddleston Interpretating Date/Time 03/27/2018 21:50:27
--- NOTE | 2018-03-27 22:00 | ECG ---
Date Performed: 03/27/2018 Time Performed: 04:39:00 PTAGE: 62 years EKG: Sinus rhythm MODERATE INTRAVENTRICULAR CONDUCTION DELAY NONSPECIFIC ST & T-WAVE ABNORMALITY BORDERLINE ECG Since the PREVIOUS TRACING , no significant change noted DOCTOR: Bonita Huddleston Interpretating Date/Time 03/27/2018 21:59:40
[2018-03-28] MEDS: Insulin NovoLOG Aspart Correctional Sugar Inj SQ SCH ×3 (04:08→12:44)
--- NOTE | 2018-03-28 07:59 | P.PNIM ---
Subjective Interval history: Pt without complaints, requests d/c - taking hydralazine BID at home Physical Exam Vital signs: Vital Signs 03/27/18 08:00 03/27/18 08:30 03/27/18 09:00 Temperature 97.8 F Pulse Rate 82 62 61 Respiratory Rate 20 16 18 Blood Pressure 169/56 H 176/89 H 158/69 H Pulse Oximetry 100 100 03/27/18 12:00 03/27/18 16:00 03/27/18 19:00 Temperature 97.4 F L 98.2 F 96.2 F L Pulse Rate 60 65 73 Respiratory Rate 15 18 20 Blood Pressure 115/50 L 149/79 H 192/82 H Pulse Oximetry 99 98 100 03/27/18 20:00 03/27/18 20:15 03/27/18 21:41 Temperature Pulse Rate 59 L 59 L Respiratory Rate Blood Pressure 165/66 H Pulse Oximetry 95 03/28/18 00:00 03/28/18 02:42 03/28/18 04:00 Temperature 97.5 F L 97.1 F L Pulse Rate 64 61 Respiratory Rate 20 20 20 Blood Pressure 156/63 H 128/51 L Pulse Oximetry 99 99 Intake & Output 03/27/18 03/28/18 03/28/18 18:59 06:59 18:59 Intake Total 740 / 740 Balance 740 / 740 Intake: IV 500 / 500 Oral 240 / 240 Other: # Voids 1 Date of Last Bowel Movement 03/27/18 - Constitutional no acute distress - Routine Respiratory Exam Present: CTA bilaterally - Routine Cardiovascular Exam Present: RRR - Routine Abdominal Exam Present: soft Results - Labs CBC & Chem 7: 03/27/18 04:36 03/27/18 04:36 Laboratory Results - last 24 hr 03/27/18 03/27/18 03/27/18 07:40 07:40 07:40 POC Glucose Hemoglobin A1c 6.7 H Iron 16 L TIBC 414 % Saturation 3.9 L Total Creatine Kinase 55 Troponin I Less than 0.02 L 03/27/18 03/27/18 03/28/18 15:45 23:27 03:17 POC Glucose 142 H 136 H Hemoglobin A1c Iron TIBC % Saturation Total Creatine Kinase Troponin I Less than 0.02 L 03/28/18 07:27 POC Glucose 144 H Hemoglobin A1c Iron TIBC % Saturation Total Creatine Kinase Troponin I Assessment and Plan - Plan Angina- secondary to baseline anemia and exacerbated by HTN -iHTN--pt will take hydralazine QAC and QHS HTN- swings from med noncompliance -she will take hydralazine QAC and QHS -stop clonidine Anemia- per PCP/GI Dispo- ok for d/c and follow up next week
[2018-03-28] MEDS: Famotidine 20 MG Tablet PO SCH (08:31)
[2018-03-28] MEDS: Aspirin 325 MG Tablet PO SCH (08:31)
[2018-03-28] MEDS: Isosorbide Mononitrate 60 MG ER 24HR Tablet (Imdur) PO SCH (08:31)
[2018-03-28] MEDS: amLODIPine 10 MG Tablet PO SCH (08:31)
[2018-03-28] MEDS: hydrALAZINE 25 MG Tablet PO SCH ×2 (08:32→12:43)
[2018-03-28] MEDS: Dicyclomine 10 MG Capsule PO SCH ×2 (08:33→12:43)
[2018-03-28] MEDS: Carvedilol 12.5 MG Tablet PO SCH (08:34)
[2018-03-28] MEDS: Enoxaparin Inj 40 MG/0.4 ML Syringe SQ SCH (08:34)
[2018-03-28 08:51] VITALS: RESP 18
[2018-03-28] MEDS ORDERED: Iron Sucrose Inj 100 MG in Sodium Chlor 0.9% Inj 100 ML IV.SIG ONE (09:00)
[2018-03-28] MEDS: carBAMazepine 200 MG Tablet PO SCH (10:33)
[2018-03-28] MEDS ORDERED: carBAMazepine 200 MG Tablet PO SCH ×2 (10:45→21:00)
--- NOTE | 2018-03-28 12:30 | P.PNIM ---
Subjective Interval history: Patient seen and evaluated in follow-up for unstable angina and iron deficiency anemia. Patient admonished to take iron supplements. Medications adjusted per cardiology consult Physical Exam Vital signs: Vital Signs 03/27/18 16:00 03/27/18 19:00 03/27/18 20:00 Temperature 98.2 F 96.2 F L Pulse Rate 65 73 59 L Respiratory Rate 18 20 Blood Pressure 149/79 H 192/82 H Pulse Oximetry 98 100 95 03/27/18 20:15 03/27/18 21:41 03/28/18 00:00 Temperature 97.5 F L Pulse Rate 59 L 64 Respiratory Rate 20 Blood Pressure 165/66 H 156/63 H Pulse Oximetry 99 03/28/18 02:42 03/28/18 04:00 03/28/18 08:00 Temperature 97.1 F L 96.9 F L Pulse Rate 61 64 Respiratory Rate 20 20 18 Blood Pressure 128/51 L 181/77 H Pulse Oximetry 99 99 Intake & Output 03/27/18 03/28/18 03/28/18 18:59 06:59 18:59 Intake Total 740 / 740 105 / 105 Balance 740 / 740 105 / 105 Intake: IV 500 / 500 105 / 105 Venofer Inj 100 MG In NS Inj 105 / 105 100 ML @ 105 mls/hr IV.SIG ONCE ONE Rx#:[id number] Oral 240 / 240 Other: # Voids 1 Date of Last Bowel Movement 03/27/18 Narrative: GENERAL: Well-nourished, well-developed patient. SKIN: Warm and dry. HEAD: Normocephalic. EYES: No scleral icterus. No injection or drainage. NECK: Supple, trachea midline. No JVD or lymphadenopathy. CARDIOVASCULAR: Regular rate and rhythm without murmurs, gallops, or rubs. RESPIRATORY: Breath sounds equal bilaterally. No accessory muscle use. GASTROINTESTINAL: Abdomen soft, non-tender, nondistended. MUSCULOSKELETAL: No cyanosis, or edema. BACK: Nontender without obvious deformity. No CVA tenderness. NEUROLOGICAL: Awake and alert. Cranial nerves II through XII intact. Motor and sensory grossly within normal limits. Five out of 5 muscle strength in all muscle groups. Normal speech. Results - Labs CBC & Chem 7: 03/27/18 04:36 03/27/18 04:36 Laboratory Results - last 24 hr 03/27/18 03/27/18 03/27/18 07:40 07:40 15:45 POC Glucose Hemoglobin A1c 6.7 H Iron 16 L TIBC 414 % Saturation 3.9 L Troponin I Less than 0.02 L 03/27/18 03/28/18 03/28/18 23:27 03:17 07:27 POC Glucose 142 H 136 H 144 H Hemoglobin A1c Iron TIBC % Saturation Troponin I 03/28/18 11:39 POC Glucose 158 H Hemoglobin A1c Iron TIBC % Saturation Troponin I Assessment and Plan - Assessment (1) Chest pain Code(s): R07.9 - Chest pain, unspecified Status: Acute Plan: Patient will continue with increased Imdur, aspirin, home medications were reinforced Cardiology consult appreciate (2) DM2 (diabetes mellitus, type 2) Code(s): E11.9 - Type 2 diabetes mellitus without complications Status: Acute Plan: Continue with ADA diet metformin held, SSI (3) Anemia Code(s): D64.9 - Anemia, unspecified Status: Acute Plan: Severe iron deficiency anemia Records obtained from GI office which showed gastritis. Patient on iron without Plavix at this moment. Patient is instructed to continue taking iron 1 dose of IV iron given here (4) PAD (peripheral artery disease) Code(s): I73.9 - Peripheral vascular disease, unspecified Status: Acute Plan: Currently aspirin Continue outpatient follow-up with cardiology - Plan Discharge home Activity unrestricted Diet diabetic and heart healthy
[2018-03-28 14:09] VITALS: BP 152/71; PULSE 68; TEMP 96.4; O2SAT 100
== END 2018-03-28 14:50 | disposition home or self-care (01) ==
LOC: PHED 04:30 → PH3 04:30 → PHEDA 04:30 → PH3 08:58
PROVIDERS: ADMIT Hospitalist; ATTEND Hospitalist

== ENCOUNTER 2018-04-03 13:53 | Observation (INO) ==
[2018-04-03 14:41] LABS: Baso # (Auto) 0.1 th/mm3 (0.0-0.2); Baso % (Auto) 1.9 % (0.0-2.0); Eos # (Auto) 0.1 th/mm3 (0.0-0.4); Eos % (Auto) 2.1 % (0.0-4.0); Hematocrit 23.4 % (35.0-46.0); Hemoglobin 7.6 gm/dL (11.6-15.3); Lymph % (Auto) 18.7 % (9.0-44.0); Mean Corpuscular HGB Conc 32.6 % (32.0-36.0); Mean Corpuscular Hemoglobin 22.3 pg (27.0-34.0); Mean Corpuscular Volume 68.4 fL (80.0-100.0); Mean Platelet Volume 7.8 fL (7.0-11.0); Mono # (Auto) 0.6 th/mm3 (0.0-0.9); Mono % (Auto) 10.5 % (0.0-8.0); Neut # (Auto) 3.8 th/mm3 (1.8-7.7); Neut % (Auto) 66.8 % (16.0-70.0); Platelet Count 416 th/mm3 (150-450); Red Blood Count 3.42 mil/mm3 (4.00-5.30); Red Cell Distribution Width 17.6 % (11.6-17.2); White Blood Count 5.6 th/mm3 (4.0-11.0)
--- NOTE | 2018-04-03 14:44 | ED ---
HPI General Chief complaint: Recheck/Abnormal Lab/Rx Stated complaint: Abd Blood Results/Sent By [facility] Source: patient Mode of arrival: ambulatory Limitations: no limitations History of Present Illness HPI narrative: 62yo F with PMH of CAD s/p CABG, ischemic cardiomyopathy, severe PAD, iron deficiency anemia, CVA, DM, HTN, HLD, depression presents to the ED because her primary care physician nurse called her today and said her hemoglobin is low again and to come to the ED. Pt had blood work drawn yesterday and they did not tell her what her hemoglobin is. Pt was just admitted for unstable angina and seen by her chief projectionist Dr. Hyman who said that she is not a cardiac cath candidate and also took her off plavix because of her anemia. She was given IV iron. Currently denies any fever, chest pain, sob, n/v, abdominal pain, focal weakness or numbness. Related Data Home Medications Medication Instructions Recorded Confirmed amlodipine 10 mg PO DAILY 03/27/18 04/03/18 aspirin [Aspir-81] 81 mg PO DAILY 03/27/18 04/03/18 atorvastatin 40 mg PO HS 03/27/18 04/03/18 carvedilol 12.5 mg PO BID 03/27/18 04/03/18 dicyclomine 10 mg PO QID 03/27/18 04/03/18 metformin 1,000 mg PO BID 03/27/18 04/03/18 ranitidine HCl 150 mg PO ONCE 03/27/18 04/03/18 carbamazepine 400 mg PO AC BREAKFAST 03/28/18 04/04/18 cyclobenzaprine 5 mg PO TID 04/03/18 04/03/18 dicyclomine [Bentyl] 20 mg Q6H 04/03/18 04/03/18 isosorbide mononitrate 60 mg PO QAM 04/03/18 04/03/18 nitroglycerin [Nitrostat] 0.4 mg SUBLINGUAL Q5-15M PRN 04/03/18 04/03/18 carbamazepine 200 mg PO HS 04/04/18 04/04/18 Previous Rx's Medication Instructions Recorded losartan 100 mg PO DAILY #31 tab 03/28/18 nitroglycerin [Nitrostat] 0.4 mg SUBLINGUAL Q5-15M PRN #25 03/28/18 tab hydralazine 50 mg PO QID #120 tab 04/04/18 Allergies Allergy/AdvReac Type Severity Reaction Status Date / Time escitalopram Allergy Severe Rash Verified 04/03/18 17:48 iodine Allergy Severe SEIZURES Verified 04/03/18 17:48 levofloxacin Allergy Severe HIVES Verified 04/03/18 17:48 phenobarbital Allergy Severe HIVES Verified 04/03/18 17:48 phenytoin Allergy Severe HIVES Verified 04/03/18 17:48 potassium iodide Allergy Severe SEIZURES Verified 04/03/18 17:48 povidone-iodine Allergy Severe SEIZURES Verified 04/03/18 17:48 sodium iodide Allergy Severe SEIZURES Verified 04/03/18 17:48 sodium iodide Allergy Severe SEIZURES Verified 04/03/18 17:48 acetaminophen Allergy Intermediate Cramping Verified 04/03/18 17:48 hydrocodone Allergy Intermediate Cramping Verified 04/03/18 17:48 venlafaxine Allergy Mild RASH Verified 04/03/18 17:48 Review of Systems ROS: all other systems reviewed are negative [facility] Social History Social History Substance History: No History of Abuse Second Hand Smoke Exposure: No Smoking Status: Never smoker Tobacco Type: Cigarettes How Often Do You Have a Drink Containing Alcohol: Never Recent Travel in [facility] within the Last 8 Weeks: No Recent Out of Country Travel within the Last 8 Weeks: No Immunization History Tetanus Immunization: Unsure Hx Influenza Vaccine This Season: No Exam Narrative Exam Narrative: GENERAL: 62yo F not in distress. SKIN: Focused skin assessment warm/dry. HEAD: Atraumatic. Normocephalic. EYES: Pupils equal and round. No scleral icterus. No injection or drainage. ENT: No nasal bleeding or discharge. Mucous membranes pink and moist. NECK: Trachea midline. No JVD. CARDIOVASCULAR: Regular rate and rhythm. No murmur appreciated. RESPIRATORY: No accessory muscle use. Clear to auscultation. Breath sounds equal bilaterally. GASTROINTESTINAL: Abdomen soft, non-tender, nondistended. MUSCULOSKELETAL: No obvious deformities. No clubbing. No cyanosis. No edema. NEUROLOGICAL: Awake and alert. No obvious cranial nerve deficits. Motor grossly within normal limits in all extremities. Sensation intact. Normal speech. PSYCHIATRIC: Appropriate mood and affect; insight and judgment normal. Course Initial Documented Vital Signs Temperature 99 F 04/03/18 13:59 Pulse Rate 74 04/03/18 13:59 Respiratory Rate 18 04/03/18 13:59 Blood Pressure 172/71 H 04/03/18 13:59 Pulse Oximetry 98 04/03/18 13:59 Last Documented Vital Signs Temperature 98.4 F 04/04/18 16:00 Pulse Rate 63 04/04/18 16:00 Respiratory Rate 16 04/04/18 16:00 Blood Pressure 131/59 L 04/04/18 16:00 Pulse Oximetry 97 04/04/18 16:00 Medical Decision Making MDM Narrative Medical decision making narrative: 62yo F with history of anemia and ischemic cardiomyopathy was sent here by primary care physician Dr. Guerra for low hemoglobin. Pt has iron deficient anemia and was just admitted 03/28/18 for chest pain and anemia. Pt currently does not have chest pain but said if she lays down or gets upset, she will have chest pain. Pt is already on iron supplement. Labs reviewed, no leukocytosis. H/H low at 7.6/23.4. Mild hyponatremia. Discussed with akin'ts primary care Dr. Melendrez who is concern about her acute drop in hemoglobin from 8.3 on 02/24 to 7.3. Pt refused rectal exam and said she had full GI work up in August by Dr. Chao. Will transfuse 1 unit of RBC and admit. Discussed with Dr. Abdi and accepted to his service. Medical Screen Exam Complete: Yes Emergency Medical Condition: Yes Differential Diagnosis Differential Diagnosis: Iron deficiency anemia vs. GI bleed Lab Data Result diagrams: 04/04/18 08:17 04/03/18 14:35 Lab Results 04/03/18 04/03/18 04/03/18 Range/Units 14:24 14:35 14:35 CBC w Diff Slide review pending WBC 5.6 (4.0-11.0) th/mm3 RBC 3.42 L (4.00-5.30) mil/mm3 Hgb 7.6 L (11.6-15.3) gm/dL Hct 23.4 L (35.0-46.0) % MCV 68.4 L (80.0-100.0) fL MCH 22.3 L (27.0-34.0) pg MCHC 32.6 (32.0-36.0) % RDW 17.6 H (11.6-17.2) % Plt Count 416 (150-450) th/mm3 MPV 7.8 (7.0-11.0) fL Neut % (Auto) 66.8 (16.0-70.0) % Lymph % (Auto) 18.7 (9.0-44.0) % [place] % (Auto) 10.5 H (0.0-8.0) % Eos % (Auto) 2.1 (0.0-4.0) % Baso % (Auto) 1.9 (0.0-2.0) % Neut # (Auto) 3.8 (1.8-7.7) th/mm3 Lymph # (Auto) 1.0 (1.0-4.8) th/mm3 [place] # (Auto) 0.6 (0.0-0.9) th/mm3 Eos # (Auto) 0.1 (0.0-0.4) th/mm3 Baso # (Auto) 0.1 (0.0-0.2) th/mm3 WBC Differential . Diff Scan Auto diff confirmed Differential Comment . Target Cells (None) Ovalocytes 2+ H (None) Acanthocytes (Spur) 1+ H (None) Keratocytes (None) PT 10.4 (9.8-11.6) sec INR 1.0 Ratio APTT 25.6 (24.3-30.1) sec Sodium (136-145) meq/L Potassium (3.5-5.1) meq/L Chloride (98-107) meq/L Carbon Dioxide (21.0-32.0) meq/L Anion Gap (5-15) meq/L BUN (7-18) mg/dL Creatinine (0.50-1.00) mg/dL Estimated GFR (>89) mL/min Random Glucose (74-106) mg/dL Calcium (8.5-10.1) mg/dL Iron (50-170) mcg/dL TIBC (250-450) mcg/dL % Saturation (20-50) % Ferritin (8-252) ng/mL Blood Type A Positive Antibody Screen Negative MTS Gel Crossmatch 04/03/18 04/03/18 04/03/18 Range/Units 14:35 14:35 15:08 CBC w Diff WBC (4.0-11.0) th/mm3 RBC (4.00-5.30) mil/mm3 Hgb (11.6-15.3) gm/dL Hct (35.0-46.0) % MCV (80.0-100.0) fL MCH (27.0-34.0) pg MCHC (32.0-36.0) % RDW (11.6-17.2) % Plt Count (150-450) th/mm3 MPV (7.0-11.0) fL Neut % (Auto) (16.0-70.0) % Lymph % (Auto) (9.0-44.0) % [place] % (Auto) (0.0-8.0) % Eos % (Auto) (0.0-4.0) % Baso % (Auto) (0.0-2.0) % Neut # (Auto) (1.8-7.7) th/mm3 Lymph # (Auto) (1.0-4.8) th/mm3 [place] # (Auto) (0.0-0.9) th/mm3 Eos # (Auto) (0.0-0.4) th/mm3 Baso # (Auto) (0.0-0.2) th/mm3 WBC Differential Diff Scan Differential Comment Target Cells (None) Ovalocytes (None) Acanthocytes (Spur) (None) Keratocytes (None) PT (9.8-11.6) sec INR Ratio APTT (24.3-30.1) sec Sodium 131 L (136-145) meq/L Potassium 3.9 (3.5-5.1) meq/L Chloride 99 (98-107) meq/L Carbon Dioxide 22.9 (21.0-32.0) meq/L Anion Gap 9 (5-15) meq/L BUN 10 (7-18) mg/dL Creatinine 0.69 (0.50-1.00) mg/dL Estimated GFR 86 L (>89) mL/min Random Glucose 155 H (74-106) mg/dL Calcium 8.6 (8.5-10.1) mg/dL Iron 25 L (50-170) mcg/dL TIBC 410 (250-450) mcg/dL % Saturation 6.1 L (20-50) % Ferritin 24 (8-252) ng/mL Blood Type Antibody Screen MTS Gel Crossmatch See Detail 04/04/18 Range/Units 08:17 CBC w Diff Slide review pending WBC 4.3 (4.0-11.0) th/mm3 RBC 3.85 L (4.00-5.30) mil/mm3 Hgb 9.2 L (11.6-15.3) gm/dL Hct 27.3 L (35.0-46.0) % MCV 71.0 L (80.0-100.0) fL MCH 23.8 L (27.0-34.0) pg MCHC 33.5 (32.0-36.0) % RDW 19.7 H (11.6-17.2) % Plt Count 427 (150-450) th/mm3 MPV 7.9 (7.0-11.0) fL Neut % (Auto) 68.5 (16.0-70.0) % Lymph % (Auto) 15.6 (9.0-44.0) % [place] % (Auto) 12.2 H (0.0-8.0) % Eos % (Auto) 2.7 (0.0-4.0) % Baso % (Auto) 1.0 (0.0-2.0) % Neut # (Auto) 3.0 (1.8-7.7) th/mm3 Lymph # (Auto) 0.7 L (1.0-4.8) th/mm3 [place] # (Auto) 0.5 (0.0-0.9) th/mm3 Eos # (Auto) 0.1 (0.0-0.4) th/mm3 Baso # (Auto) 0.0 (0.0-0.2) th/mm3 WBC Differential . Diff Scan Auto diff confirmed Differential Comment . Target Cells 1+ H (None) Ovalocytes 2+ H (None) Acanthocytes (Spur) (None) Keratocytes Occ H (None) PT (9.8-11.6) sec INR Ratio APTT (24.3-30.1) sec Sodium (136-145) meq/L Potassium (3.5-5.1) meq/L Chloride (98-107) meq/L Carbon Dioxide (21.0-32.0) meq/L Anion Gap (5-15) meq/L BUN (7-18) mg/dL Creatinine (0.50-1.00) mg/dL Estimated GFR (>89) mL/min Random Glucose (74-106) mg/dL Calcium (8.5-10.1) mg/dL Iron (50-170) mcg/dL TIBC (250-450) mcg/dL % Saturation (20-50) % Ferritin (8-252) ng/mL Blood Type Antibody Screen MTS Gel Crossmatch Discharge Plan Discharge Disposition Patient Disposition: 30 Still Patient Discharge Condition Condition: Stable Discharge Order Discharge Orders: Discharge Order (Routine); Ordered 04/04/18 Ordered By: Louis Lyman Discharge Details Anticipated Discharge Date: 04/04/18 Diagnosis: Anemia Physicians Team ED Provider: Paz Pop Primary Care Provider: Simba Perez Attending Provider: Brett Abdi Other Providers: Ravinder Mitchell ; [employer] Status ED Status: Left Department Discharge Information Discharge Date/Time: 04/03/18 16:42
[2018-04-03 14:51] LABS: Potassium 3.9 meq/L (3.5-5.1)
[2018-04-03 14:53] LABS: Calcium 8.6 mg/dL (8.5-10.1)
[2018-04-03 14:54] LABS: Activated Partial Thrombo Time 25.6 sec (24.3-30.1); Carbon Dioxide 22.9 meq/L (21.0-32.0); Prothrombin Time 10.4 sec (9.8-11.6)
[2018-04-03 15:24] LABS: Acanthocytes 1+; Ovalocytes 2+
[2018-04-03] MEDS ORDERED: Acetaminophen 325 MG Tablet PO PRN (15:52)
[2018-04-03] MEDS ORDERED: Sodium Chlor 0.9% Inj 250 ML IV.SIG SCH (16:00)
[2018-04-03] MEDS: LORazepam 1 MG Tablet PO PRN (17:34)
--- NOTE | 2018-04-03 18:04 | P.HP ---
History of Present Illness Primary Care Physician: Simba Perez MD Chief Complaint: Patient sent here by paramedical doctor because of anemia History of Present Illness: 62-year-old female with known history of chronic iron deficient anemia , angina, hypertension, hyperlipidemia, coronary disease, diabetes who presented to the hospital today at the request of her primary medical doctor because of anemia. Patient was just recently admitted to the hospital approximately 1 week ago for same symptoms. Patient at that time had hemoglobin 8.4 and during that admission she had iron infusion performed. Patient does have history of angina and cardiology did evaluate the patient at that admission. It was indicated that due to her anemia patient would have the demand ischemia in not a candidate at that time for cardiac catheterization. The intermediate project manager did increase the patient's Imdur and discontinued Plavix because of her anemia. However despite the iron infusion as well as the discontinuation of Plavix apparently the patient continues to have a drop in her hemoglobin. She has not been able to tolerate any p.o. iron in the outpatient setting. Patient has had workup done by GI physician with endoscopies. Patient indicates that she has been in using in increased amounts of nitroglycerin on a daily basis due to her chest discomfort. It was recommended that the patient come to the hospital get a transfusion to hopefully help with her angina. Patient continues to have intermittent chest pain with and without exertion. Patient has increased fatigue. Patient denied any melena or hematochezia. - Diagnosis (1) Unstable angina (2) Iron deficiency anemia Review of Systems All other systems reviewed negative except as stated in HPI Cardiovascular: Reports chest pain PMFSH - History History Provided By: Patient, Family Member - Medical History Medical History: Medical History (Last Reviewed 04/03/18 @ 18:11 by GARY Jennings) Anemia Angina at rest Carotid artery disease Diabetes HTN (hypertension) Heart attack High cholesterol History of right common carotid artery stent placement Normal colonoscopy Seizure Spinal stenosis in cervical region Stroke Trigger finger of right hand - Surgical History Surgical History: Surgical History (Last Reviewed 04/03/18 @ 18:11 by GARY Jennings) H/O arthroscopy of right knee History of angioplasty of peripheral vessel History of lumbar surgery - Family History Family History: Family History (Last Reviewed 04/03/18 @ 18:11 by GARY Jennings) Other CAD (coronary artery disease) Throat cancer - Tobacco History Second Hand Smoke Exposure: No Smoking Status: Former smoker Tobacco Type: Cigarettes - Alcohol History How Often Do You Have a Drink Containing Alcohol: Never - Substance Use History Substance History: No History of Abuse - Travel History Recent Travel in the [place] Within the Last 8 Weeks: No Recent Travel Out of the Country Within the Last 8 Weeks: No - Immunization History Tetanus Immunization: Unsure Hx Influenza Vaccine This Season: No Medications and Allergies Active Medications: Active Medications Acetaminophen (Tylenol) 650 mg PO Q4H PRN PRN Reason: Temp > 100.4 Al Hydroxide/Mg Hydroxide (Milk Of Magnmariano Liq) 30 ml PO Q12H PRN PRN Reason: Mild Constipation Sodium Chloride (Ns Inj) 250 mls @ 15 mls/hr IV.SIG ONCE MAYDA Stop: 04/04/18 08:39 Last Admin: 04/03/18 16:11 Dose: 15 mls/hr Lorazepam (Ativan) 1 mg PO Q6H PRN PRN Reason: ANXIETY Last Admin: 04/03/18 17:34 Dose: 1 mg Sodium Chloride (Ns Flush) 2 ml IV.FLUSH PRN PRN PRN Reason: FLUSH AFTER USING IV ACCESS Temazepam (Restoril) 15 mg PO HS PRN PRN Reason: INSOMNIA Allergies Allergy/AdvReac Type Severity Reaction Status Date / Time escitalopram Allergy Severe Rash Verified 04/03/18 17:48 iodine Allergy Severe SEIZURES Verified 04/03/18 17:48 levofloxacin Allergy Severe HIVES Verified 04/03/18 17:48 phenobarbital Allergy Severe HIVES Verified 04/03/18 17:48 phenytoin Allergy Severe HIVES Verified 04/03/18 17:48 potassium iodide Allergy Severe SEIZURES Verified 04/03/18 17:48 povidone-iodine Allergy Severe SEIZURES Verified 04/03/18 17:48 sodium iodide Allergy Severe SEIZURES Verified 04/03/18 17:48 sodium iodide Allergy Severe SEIZURES Verified 04/03/18 17:48 acetaminophen Allergy Intermediate Cramping Verified 04/03/18 17:48 hydrocodone Allergy Intermediate Cramping Verified 04/03/18 17:48 venlafaxine Allergy Mild RASH Verified 04/03/18 17:48 Home Medications Medication Instructions Recorded Confirmed Type amlodipine 10 mg PO DAILY 03/27/18 04/03/18 History aspirin [Aspir-81] 81 mg PO DAILY 03/27/18 04/03/18 History atorvastatin 40 mg PO HS 03/27/18 04/03/18 History carvedilol 12.5 mg PO BID 03/27/18 04/03/18 History dicyclomine 10 mg PO QID 03/27/18 04/03/18 History hydralazine 25 mg PO QID 03/27/18 04/03/18 History metformin 1,000 mg PO BID 03/27/18 04/03/18 History ranitidine HCl 150 mg PO ONCE 03/27/18 04/03/18 History carbamazepine 200 mg PO TID 03/28/18 04/03/18 History cyclobenzaprine 5 mg PO TID 04/03/18 04/03/18 History dicyclomine [Bentyl] 20 mg Q6H 04/03/18 04/03/18 History isosorbide mononitrate 60 mg PO QAM 04/03/18 04/03/18 History nitroglycerin [Nitrostat] 0.4 mg SUBLINGUAL Q5-15M PRN 04/03/18 04/03/18 History Exam Vital signs: Vital Signs 04/03/18 13:59 Temperature 99 F Pulse Rate 74 Respiratory Rate 18 Blood Pressure 172/71 H Pulse Oximetry 98 Intake & Output 04/02/18 04/03/18 04/03/18 18:59 06:59 18:59 Weight 80 kg Narrative: GENERAL: Well-developed, well-nourished, in no acute distress. alert and orientated HEENT: Head is normocephalic without any lesions or masses noted. Facial features are symmetric. Eyes: Pupils equal round reactive to light. Extraocular muscles are intact. Conjunctivae were clear. Oropharyngeal: Pharynx without any erythema edema. Tongue is midline without deviation. Buccal mucosa is moist without any masses or lesions NECK: Supple without any masses. Trachea midline no deviation. No JVD, no bruits are appreciated CARDIAC: Regular rhythm, regular rate. S1/S2 are heard. 3/6 ejection murmur noted in the tricuspid/mitral region. No gallops or rubs. LUNGS: Clear to auscultation bilaterally. No wheeze, rhonchi or rales. No use of accessory muscles on inspiration or expiration. ABDOMEN: Soft, nontender. Nondistended. Bowel sounds heard in all 4 quadrants. No organomegaly or masses. Negative rebound, negative guarding EXTREMITIES: No edema, pulses are equal bilaterally. No cyanosis or clubbing NEUROLOGY: Mood and affect appear appropriate. Cranial nerves II through XII grossly intact. Muscle strength 5/5 in upper and lower extremities bilaterally. Deep tendon reflexes are 2+ in upper and lower extremities bilaterally. Results - Labs CBC & Chem 7: 04/03/18 14:35 04/03/18 14:35 Labs: Laboratory Results - last 24 hr 04/03/18 04/03/18 04/03/18 14:35 14:35 14:35 CBC w Diff Slide review pending WBC 5.6 RBC 3.42 L Hgb 7.6 L Hct 23.4 L MCV 68.4 L MCH 22.3 L MCHC 32.6 RDW 17.6 H Plt Count 416 MPV 7.8 Neut % (Auto) 66.8 Lymph % (Auto) 18.7 [place] % (Auto) 10.5 H Eos % (Auto) 2.1 Baso % (Auto) 1.9 Neut # (Auto) 3.8 Lymph # (Auto) 1.0 [place] # (Auto) 0.6 Eos # (Auto) 0.1 Baso # (Auto) 0.1 WBC Differential . Diff Scan Auto diff confirmed Differential Comment . Ovalocytes 2+ H Acanthocytes (Spur) 1+ H PT 10.4 INR 1.0 APTT 25.6 Sodium 131 L Potassium 3.9 Chloride 99 Carbon Dioxide 22.9 Anion Gap 9 BUN 10 Creatinine 0.69 Estimated GFR 86 L Random Glucose 155 H Calcium 8.6 Caprini VTE Risk Assessment Caprini VTE Risk Assessment: Moderate/High Risk (score >= 2) Caprini Risk Assessment Model: Point Value = 1 Point Value = 2 Point Value = 3 Point Value = 5 Age 41-60 Minor surgery BMI > 25 kg/m2 Swollen legs Varicose veins or History of unexplained or recurrent spontaneous Oral contraceptives or hormone replacement Sepsis (< 1 month) Serious lung disease, including pneumonia (< 1 month) Abnormal pulmonary function Acute myocardial infarction Congestive heart failure (< 1 month) History of inflammatory bowel disease Medical patient at bed rest Age 61-74 Arthroscopic surgery Major open surgery (> 45 min) Laparoscopic surgery (> 45 min) Malignancy Confined to bed (> 72 hours) Immobilizing plaster cast Central venous access Age >= 75 History of VTE Family history of VTE Factor V Leiden Prothrombin [id number] Lupus anticoagulant Anticardiolipin antibodies Elevated serum homocysteine Heparin-induced thrombocytopenia Other congenital or acquired thrombophilia Stroke (< 1 month) Elective arthroplasty Hip, pelvis, or leg fracture Acute spinal cord injury (< 1 month) Prophylaxis Regimen: Total Risk Factor Score Risk Level Prophylaxis Regimen 0-1 Low Early ambulation 2 Moderate Order ONE of the following: *Sequential Compression Device (SCD) *Heparin 5000 units SQ BID 3-4 Higher Order ONE of the following medications: *Heparin 5000 units SQ TID *Enoxaparin/Lovenox 40 mg SQ daily (WT < 150 kg, CrCl > 30 mL/min) *Enoxaparin/Lovenox 30 mg SQ daily (WT < 150 kg, CrCl > 10-29 mL/min) *Enoxaparin/Lovenox 30 mg SQ BID (WT < 150 kg, CrCl > 30 mL/min) AND/OR *Sequential Compression Device (SCD) 5 or more Highest Order ONE of the following medications: *Heparin 5000 units SQ TID (Preferred with Epidurals) *Enoxaparin/Lovenox 40 mg SQ daily (WT < 150 kg, CrCl > 30 mL/min) *Enoxaparin/Lovenox 30 mg SQ daily (WT < 150 kg, CrCl > 10-29 mL/min) *Enoxaparin/Lovenox 30 mg SQ BID (WT < 150 kg, CrCl > 30 mL/min) AND *Sequential Compression Device (SCD) Assessment and Plan - Assessment (1) Unstable angina Code(s): I20.0 - Unstable angina Status: Acute (2) Iron deficiency anemia Code(s): D50.9 - Iron deficiency anemia, unspecified Status: Acute - Plan Iron deficient anemia -Patient not responding to iron replacement therapy due to GI intolerance. Patient has received IV iron last week without any significant response -Due to the patient's underlying angina and coronary artery disease. Patient required transfusion for control of her symptoms, stabilization and possible further intervention in the future -Transfuse 1 unit of packed red blood cells -Obtain iron studies, ferritin level -Consult hematology for further recommendations, outpatient management of her iron hopefully outpatient IV iron infusions, since patient is intolerant to p.o. iron replacement Angina -Chest pain is exacerbated by her anemia per cardiology on her last hospitalization. Hopefully after infusion her disc effort will improve -Continue aspirin, beta-corry, statin, amlodipine,ARB, nitroglycerin Diabetes -Accu-Cheks with sliding scale insulin -Diabetic diet Hypertension, hyperlipidemia, coronary disease -Home medications continued DVT prevention -Sequential compression devices
[2018-04-03] MEDS ORDERED: Temazepam 15 MG Capsule PO PRN (21:00)
[2018-04-03] MEDS: Isosorbide Mononitrate 60 MG ER 24HR Tablet (Imdur) PO SCH (21:54)
[2018-04-03] MEDS: Carvedilol 12.5 MG Tablet PO SCH (23:09)
[2018-04-03] MEDS: hydrALAZINE 25 MG Tablet PO SCH (23:10)
[2018-04-03] MEDS ORDERED: carBAMazepine 200 MG Tablet PO ONE (23:36)
[2018-04-04 01:08] LABS: % Iron Saturation 6.1 % (20-50)
[2018-04-04] MEDS: Carvedilol 12.5 MG Tablet PO SCH (08:45)
[2018-04-04 08:46] LABS: Eos # (Auto) 0.1 th/mm3 (0.0-0.4); Eos % (Auto) 2.7 % (0.0-4.0); Hematocrit 27.3 % (35.0-46.0); Hemoglobin 9.2 gm/dL (11.6-15.3); Lymph # (Auto) 0.7 th/mm3 (1.0-4.8); Lymph % (Auto) 15.6 % (9.0-44.0); Mean Corpuscular HGB Conc 33.5 % (32.0-36.0); Mean Corpuscular Hemoglobin 23.8 pg (27.0-34.0); Mean Platelet Volume 7.9 fL (7.0-11.0); Mono # (Auto) 0.5 th/mm3 (0.0-0.9); Mono % (Auto) 12.2 % (0.0-8.0); Neut % (Auto) 68.5 % (16.0-70.0); Platelet Count 427 th/mm3 (150-450); Red Blood Count 3.85 mil/mm3 (4.00-5.30); Red Cell Distribution Width 19.7 % (11.6-17.2); White Blood Count 4.3 th/mm3 (4.0-11.0)
[2018-04-04] MEDS: hydrALAZINE 25 MG Tablet PO SCH (08:46)
[2018-04-04] MEDS: Isosorbide Mononitrate 60 MG ER 24HR Tablet (Imdur) PO SCH (08:46)
[2018-04-04] MEDS: LORazepam 1 MG Tablet PO PRN (08:47)
[2018-04-04] MEDS ORDERED: amLODIPine 10 MG Tablet PO SCH (09:00)
[2018-04-04] MEDS ORDERED: carBAMazepine 200 MG Tablet PO SCH ×3 (09:00→21:00)
[2018-04-04 09:22] LABS: Ovalocytes 2+; Target Cells 1+
--- NOTE | 2018-04-04 11:05 | P.PN ---
Subjective Interval history: 62-year-old female who is seen and examined today in follow-up for anemia, chest pain. Patient states that she is doing much better. She received transfusion yesterday. Patient not indicating that she is experiencing any chest pain today. Patient blood pressure is still mildly elevated. Patient afebrile. Physical Exam Vital signs: Vital Signs 04/03/18 13:59 04/03/18 17:00 04/03/18 20:00 Temperature 99 F 97 F L 96.1 F L Pulse Rate 74 66 73 Respiratory Rate 18 20 20 Blood Pressure 172/71 H 199/80 H 183/74 H Pulse Oximetry 98 98 98 04/03/18 22:00 04/03/18 22:23 04/04/18 00:00 Temperature 96.7 F L 96.7 F L 96.7 F L Pulse Rate 68 68 68 Respiratory Rate 18 20 20 Blood Pressure 159/67 H 179/75 H Pulse Oximetry 98 99 99 04/04/18 00:16 04/04/18 08:00 Temperature 97.5 F L 97.2 F L Pulse Rate 71 65 Respiratory Rate 20 16 Blood Pressure 179/74 H 171/74 H Pulse Oximetry 98 98 Intake & Output 04/03/18 04/04/18 04/04/18 18:59 06:59 18:59 Intake Total 240 / 240 690 / 690 Balance 240 / 240 690 / 690 Weight 80 kg 79.2 kg Intake: IV 50 / 50 NS Inj 250 ML @ 15 mls/hr IV. 50 / 50 SIG ONCE MAYDA Rx#:[id number] Oral 240 / 240 240 / 240 Intake (Blood Product) Amt 400 / 400 Rbc As-3 Leukoreduced Unit 400 / 400 [id number] Other: # Voids 2 Date of Last Bowel Movement 04/03/18 Weight On Admission 80 kg Narrative: GENERAL: Well-developed, well-nourished, in no acute distress. alert and orientated HEENT: Head is normocephalic without any lesions or masses noted. Facial features are symmetric. Eyes: Extraocular muscles are intact. Conjunctivae were clear. NECK: Supple without any masses. Trachea midline no deviation. No JVD, CARDIAC: Regular rhythm, regular rate. S1/S2 are heard. No murmurs gallops or rubs. LUNGS: Clear to auscultation bilaterally. No wheeze, rhonchi or rales. No use of accessory muscles on inspiration or expiration. ABDOMEN: Soft, nontender. Nondistended. Bowel sounds heard in all 4 quadrants. No organomegaly or masses. Negative rebound, negative guarding EXTREMITIES: No edema, pulses are equal bilaterally. No cyanosis or clubbing NEUROLOGY: Mood and affect appear appropriate. Cranial nerves II through XII grossly intact. Moving all extremities, speech is clear Results - Labs CBC & Chem 7: 04/04/18 08:17 04/03/18 14:35 Laboratory Results - last 24 hr 04/03/18 04/03/18 04/03/18 14:24 14:35 14:35 CBC w Diff Slide review pending WBC 5.6 RBC 3.42 L Hgb 7.6 L Hct 23.4 L MCV 68.4 L MCH 22.3 L MCHC 32.6 RDW 17.6 H Plt Count 416 MPV 7.8 Neut % (Auto) 66.8 Lymph % (Auto) 18.7 [place] % (Auto) 10.5 H Eos % (Auto) 2.1 Baso % (Auto) 1.9 Neut # (Auto) 3.8 Lymph # (Auto) 1.0 [place] # (Auto) 0.6 Eos # (Auto) 0.1 Baso # (Auto) 0.1 WBC Differential . Diff Scan Auto diff confirmed Differential Comment . Target Cells Ovalocytes 2+ H Acanthocytes (Spur) 1+ H Keratocytes PT 10.4 INR 1.0 APTT 25.6 Sodium Potassium Chloride Carbon Dioxide Anion Gap BUN Creatinine Estimated GFR Random Glucose Calcium Iron TIBC % Saturation Ferritin Blood Type A Positive Antibody Screen Negative MTS Gel Crossmatch 04/03/18 04/03/18 04/03/18 14:35 14:35 15:08 CBC w Diff WBC RBC Hgb Hct MCV MCH MCHC RDW Plt Count MPV Neut % (Auto) Lymph % (Auto) [place] % (Auto) Eos % (Auto) Baso % (Auto) Neut # (Auto) Lymph # (Auto) [place] # (Auto) Eos # (Auto) Baso # (Auto) WBC Differential Diff Scan Differential Comment Target Cells Ovalocytes Acanthocytes (Spur) Keratocytes PT INR APTT Sodium 131 L Potassium 3.9 Chloride 99 Carbon Dioxide 22.9 Anion Gap 9 BUN 10 Creatinine 0.69 Estimated GFR 86 L Random Glucose 155 H Calcium 8.6 Iron 25 L TIBC 410 % Saturation 6.1 L Ferritin 24 Blood Type Antibody Screen MTS Gel Crossmatch See Detail 04/04/18 08:17 CBC w Diff Slide review pending WBC 4.3 RBC 3.85 L Hgb 9.2 L Hct 27.3 L MCV 71.0 L MCH 23.8 L MCHC 33.5 RDW 19.7 H Plt Count 427 MPV 7.9 Neut % (Auto) 68.5 Lymph % (Auto) 15.6 [place] % (Auto) 12.2 H Eos % (Auto) 2.7 Baso % (Auto) 1.0 Neut # (Auto) 3.0 Lymph # (Auto) 0.7 L [place] # (Auto) 0.5 Eos # (Auto) 0.1 Baso # (Auto) 0.0 WBC Differential . Diff Scan Auto diff confirmed Differential Comment . Target Cells 1+ H Ovalocytes 2+ H Acanthocytes (Spur) Keratocytes Occ H PT INR APTT Sodium Potassium Chloride Carbon Dioxide Anion Gap BUN Creatinine Estimated GFR Random Glucose Calcium Iron TIBC % Saturation Ferritin Blood Type Antibody Screen MTS Gel Crossmatch Assessment and Plan - Assessment (1) Unstable angina Code(s): I20.0 - Unstable angina Status: Acute (2) Iron deficiency anemia Code(s): D50.9 - Iron deficiency anemia, unspecified Status: Acute - Plan Iron deficient anemia -Patient not responding to iron replacement therapy due to GI intolerance. Patient has received IV iron last week without any significant response -Due to the patient's underlying angina and coronary artery disease. Patient required transfusion for control of her symptoms, stabilization and possible further intervention in the future -Status post transfusion of 1 unit of packed red blood cells -Iron 25, TIBC 410, ferritin 24 -Awaiting consult hematology for further recommendations, outpatient management of her iron hopefully outpatient IV iron infusions, since patient is intolerant to p.o. iron replacement Angina -Chest pain is exacerbated by her anemia per cardiology on her last hospitalization. Her symptoms improved after infusion -Continue aspirin, beta-corry, statin, amlodipine,ARB, nitroglycerin Diabetes -Accu-Cheks with sliding scale insulin -Diabetic diet Hypertension, hyperlipidemia, coronary disease -Home medications continued -Increase to Apresoline 50 mg 4 times daily DVT prevention -Sequential compression devices Discharge Planning: Discharge home in stable condition Activity: Ad viktoria. Diet: Healthy heart diet Medication per medication reconciliation Follow-up with primary medical doctor in 1 week
[2018-04-04] MEDS: hydrALAZINE 50 MG Tablet PO SCH ×2 (12:13→17:29)
--- NOTE | 2018-04-04 19:14 | MB ---
cc: Abi Gates MD, Matthew J PA DATE: 04/04/2018 REFERRING PHYSICIAN: Louis Lyman MD CHIEF COMPLAINT: Louis Lyman requested a consultation for Mrs. Molina regarding iron deficiency anemia requiring transfusion. HISTORY OF PRESENT ILLNESS: Mrs. Molina is a 62-year-old woman with history of unstable angina, well known patient to Dr. Lynch. She has had episodes of left-sided chest pain responsive to nitroglycerin. We discussed that her chest pain symptoms appear atypical to be cardiac in nature, given its unusual pattern. She has a history of anemia, diabetes, hypertension, hypercholesterolemia, seizure disorder, previous stroke, spinal stenosis. She was admitted to the hospital when her primary found her hemoglobin to be significantly reduced. She was transfused 1 unit of packed red cells with excellent response. She was previously admitted to the hospital on 03/27/2018 and discharged on 03/28/2018 for her chest pain symptoms. Her hemoglobin on admission was 8.4, platelet count 459, white blood cell count of 6.6. She was given parenteral iron therapy. She was advised to follow up with Hematology on an outpatient basis; however, she has not had an opportunity to follow up with Hematology. Rather, she was found to have a decrease in hemoglobin again was advised to come into the emergency room by her primary physician. She describes an endoscopic evaluation for anemia by GI. She has had an upper endoscopy and colonoscopy without any pathology to explain the iron deficiency. She no longer has menses. She denies any melena or bright red blood per rectum to explain the iron deficiency. She has tried the oral iron supplementation since her last admission. She finds it difficult. She believes that her calcium supplementation is causing her to not absorb iron appropriately. REVIEW OF SYSTEMS: She denies any fever, chills or night sweats. She was admitted to the hospital with hemoglobin of 7.6. She was transfused 1 unit of packed red cells and her hemoglobin was 9.2 the following day. She is eager to go home and continue followup on an outpatient basis. The rest of her review of systems is negative. PAST MEDICAL HISTORY: Chronic anemia, angina, coronary artery disease, hypertension, diabetes, prior myocardial infarction, hypercholesterolemia, right common carotid artery stent placement, seizure disorder, previous stroke, spinal stenosis in the cervical region. PAST SURGICAL HISTORY: Arthroscopic surgery, right knee, upper endoscopy and colonoscopy, arthroplasty of peripheral vessels, carotid stent placement, lumbar surgery. FAMILY HISTORY: Father of cardiac complications post-IN. No family history of cancer or thalassemia. ALLERGIES: To multiple medications includin. CITALOPRAM. 2. IODINE. 3. LEVAQUIN. 4. PHENOBARBITAL. 5. PHENYTOIN. PHYSICAL EXAMINATION: VITAL SIGNS: Temperature 98.4, heart rate 63, respiratory rate 16, blood pressure 131/59, saturation 97%. GENERAL: Ms. Molina is a well-developed, well-nourished woman, who looks her stated age. Her was at bedside. HEENT: Pupils are round, reactive to light and accommodation. Conjunctivae are pale. Oropharynx is clear. NECK: Supple. LUNGS: Clear to auscultation. CARDIOVASCULAR: Reveals normal rate and rhythm. ABDOMEN: Benign. LOWER EXTREMITIES: No edema. She moves all 4 extremities. LABORATORY DATA: Revealed a microcytic anemia, hemoglobin 9.2, MCV 71. PT, PTT are normal. Chemistry shows normal renal function. Sodium 131. Iron studies are consistent with iron deficiency with a ferritin of 24, iron saturation is 6.1, TIBC is 410, iron is 25. ASSESSMENT AND PLAN: Ms. Molina is a 62-year-old woman with multiple medical problems. She has had a history of intermittent anemia. Review of the electronic medical record shows a normal hemoglobin at some point. Her hemoglobin 02/02/2011 was 12.7. On 07/21/2016, her hemoglobin is 4.0, MCV have recently become microcytic in nature. White blood cell count for the most part is normal. Platelet count is normal. I had a lengthy discussion with Ms. Molina about her diagnosis of iron deficiency. We suspect gastrointestinal loss of iron, since she no longer menstruates. The negative endoscopy does not prove or disprove gastrointestinal loss of iron. We discussed replacing her iron parenterally. I estimate her iron deficit to be about 1 g. We will coordinate iron infusion on an outpatient basis. Once she is iron-replete and still anemic, we may consider bone marrow biopsy evaluation to rule out underlying bone marrow pathology. I anticipate that her anemia would resolve with correction of the iron deficiency. We discussed followup on an outpatient basis. Her case was discussed with the primary team. We will coordinate followup in the clinic. My card was provided to her and her . They will call on Saturday for a followup appointment to establish an outpatient center. We doing this in hopes of avoiding additional transfusions through the emergency room. Her hemoglobin is stable at present. No additional therapy is required. Her questions were answered to her satisfaction. MD JOSLYN Hyman/travis , 06:09 PM , 06:24 PM
== END 2018-04-04 18:47 | disposition home or self-care (01) ==
LOC: PHEDA 13:53 → PHED 13:53 → PH3 13:53
PROVIDERS: ADMIT Family Medicine; ATTEND Family Medicine